=== PATIENT | female | born 1935 | race Hispanic/Latino ===

== ENCOUNTER 2016-03-23 14:24 | Inpatient (IN) | payer MEDICARE ==
[~2016-03-23] VITALS: Ht 154.9 cm; Wt 75.5 kg
[2016-03-23] VITALS (9 sets, daily range): BP systolic 115–140; BP diastolic 59–104; PULSE 71–139; RESP 16–29; O2SAT 36–95
[~2016-03-23 14:24] MED LIST: ACET-1453 PO; ASPI81TA2 PO; CAR180CD PO; COU25 PO; CYCL5TAB PO; LEV500 PO; LEVO750T9 PO; PRE20 PO; ProAirHFA INH; ZES20T PO; [UNRECOGNIZED DRUG - CODE] PO
--- NOTE | 2016-03-23 15:18 | ED.REPORT ---
HPI-General Illness Date of Service Mar 23, 2016 ED Provider: Jay Crespo MD 81 year old female with a hx of Afib on Warfarin and Cardizem presents to the ED due to generalized weakness and SOB this morning. Pt was seen at ENT yesterday due to multiple episodes of epistaxis where she had the areas cauterized. Pt is concerned that she lost too much blood. Today she reports associated wheezing. Pt denies CP and lightheadedness. Nursing Notes Stated Complaint: CHEST COLD Chief Complaint: Dysrhythmia/Cardiac Nursing Notes Reviewed: Yes Allergies: Coded Allergies: No Known Allergies (Verified Allergy, Unknown, 01/22/16) Scheduled Diltiazem-Expunged Drug, Do Not Renew! (Diltiazem CD-Expunged Drug, Do Not Renew !) 180 Mg Capsule 180 MG PO DAILY 24 HOUR DOSAGE FORM Lisinopril-Expunged Drug, Do Not Renew! (Lisinopril-Expunged Drug, Do Not Renew! ) 20 Mg Tablet 20 MG PO DAILY Prednisone (PredniSONE) 20 Mg Tablet 40 MG PO DAILY Warfarin Inactive Drug Do Not Use (Coumadin Inactive Drug Do Not Use) 2.5 Mg Tablet 5 MG PO DAILY Restart on 01/21 (tomorrow) Scheduled PRN Albuterol-Expunged Drug, Do Not Renew! (ProAir HFA-Expunged Drug, Do Not Renew! ) 200 Puff/8.5 Gm Hfa.aer.ad 2 PUFFS INH QID PRN PRN GUAIFENESIN/COD-Expunged Drug, Do Not Renew! (ROBITUSSIN AC-Expunged Drug, Do Not Renew!) 5 Ml Udc 5 ML PO Q6 PRN PRN General Time Seen by MD: 15:13 Chief Complaint Weakness Hx Obtained From: Patient, Other family... Arrived By: Wheelchair Sudden in Onset?: No Onset Occurred: 1 - 4 hours ago Symptom Duration: Since onset Severity: Current: No pain currently Associated with: Reports: Shortness of breath, Denies: Dizziness, Fever Pertinent Negative: Relieved by nothing Recent Healthcare: Recent doctor visit Past Medical History Past Medical History cataracts hypertension asthma arthritis borderline diabetes Past Surgical History Goiter surgery Smoking History Never Smoker Social History Alcohol Use: Denies alcohol use Drug Use: Denies drug use Other Social History: Good social support Ambulatory Status Independent Review of Systems Full Review of Systems Constitutional: Reports: Weakness - generalized, Denies: Fever Ears / Nose / Throat: Reports: Earache left, Nose bleeding (yesterday) Respiratory: Reports: Shortness of breath, Wheezing, Denies: Non-productive cough (productive cough +) Cardiovascular: Denies: Chest pain Neurologic: Denies: Dizziness, Lightheaded Complete sys rev & neg: except as marked. Physical Exam Vital Signs Vital Signs Date Time Temp Pulse Resp B/P Pulse Ox O2 Delivery O2 Flow Rate FiO2 03/23/16 17:02 137 29 115/74 92 Room Air 03/23/16 16:07 118 25 137/93 94 Room Air 03/23/16 15:58 139 20 36 Room Air 03/23/16 14:33 36.1 136 20 135/90 95 Room Air 03/23/16 14:29 36.1 136 20 135/90 95 Room Air Initial VS: Reviewed General/Constitutional: Well-developed, Well-nourished Head / Eyes: Atraumatic, Normocephalic, PERRL ENT: Conjunctiva normal, No scleral icterus Abdomen / GI: Soft, Non-tender, No guarding, No rebound, No distention Extremities: Vascular intact, Neuro intact Skin: Warm, Dry, No cyanosis Neurologic: Alert, Oriented, Nonfocal Psychiatric: Mood/affect normal, Behavior normal, Normal thought content ENT: Dried blood in nostrils without any active bleeding. Unable to see back of throat. Neck: Full range of motion Thyroidectomy scar Respiratory / Chest: Breath sounds = bilat Scattered wheezes Cardiovascular: No gallop, No murmurs, No rubs, Peripheral circulation NL Heart Rate / Rhythm: Positive: Irreg irregular rhythm, Tachycardia Interpretation & Diagnostics Lab Results Interpretation Result Diagram: 03/23/16 1500 03/23/16 1500 Test 03/23/16 15:00 03/23/16 15:52 03/23/16 17:20 White Blood Count 6.3th/mm3 (3.8-10.1) Red Blood Count 4.22mil/mm3 (3.90-5.20) Hemoglobin 12.6g/dL (12.0-15.6) Hematocrit 39.8% (35.0-46.0) Mean Corpuscular Volume 94.3fL (81-100) Mean Corpuscular Hemoglobin 29.9pg (27.0-35.0) Mean Corpuscular Hemoglobin Concent 31.7% (32.0-37.0) Red Cell Distribution Width 15.1% (12.3-15.4) Platelet Count 198bil/L (150-400) Neutrophils (%) (Auto) 69.0% (40-74) Lymphocytes (%) (Auto) 20.6% (14-46) Monocytes (%) (Auto) 8.6% (4-12) Eosinophils (%) (Auto) 1.3% (0-5) Basophils (%) (Auto) 0.3% (0-3) Prothrombin Time 40.2sec (8.1-12.5) Prothromb Time International Ratio 3.66ratio D-Dimer < 0.5mg/L (<0.50) Sodium Level 141mEq/L (134-144) Potassium Level 4.5mEq/L (3.5-5.2) Chloride Level 104mEq/L (97-108) Carbon Dioxide Level 24mmol/L (18-29) Blood Urea Nitrogen 28mg/dL (8-27) Creatinine 0.54mg/dL (0.57-1.00) Estimat Glomerular Filtration Rate 155mL/min (>59) Glucose Level 99mg/dL (60-99) Lactic Acid Level 1.2mmol/L (0.4-2.0) Calcium Level 9.1mg/dL (8.5-10.1) Magnesium Level 1.9mg/dL (1.6-2.6) Total Bilirubin 0.6mg/dL (0.0-1.2) Aspartate Amino Transf (AST/SGOT) 32U/L (0-50) Alanine Aminotransferase (ALT/SGPT) 39U/L (0-32) Alkaline Phosphatase 105U/L (25-165) Troponin T 0.055ug/L (0.0-0.011) Pro-B-Type Natriuretic Peptide 2182pg/mL (0-738) Total Protein 6.1g/dL (6.4-8.4) Albumin 3.5g/dL (3.4-5.0) Hold Quigley Top Tube Received (Received) Urine Color Yellow (YELLOW) Urine Appearance Hazy (CLEAR,HAZY) Urine pH 5.0 (5.0-8.0) Urine Specific [place] 1.025 (1.003-1.035) Urine Protein Negativemg/dL (NEG,TRACE) Urine Glucose (UA) Negativemg/dL (NEGATIVE) Urine Ketones Negativemg/dL (NEGATIVE) Urine Occult Blood Negative (NEGATIVE) Urine Nitrite Negative (NEGATIVE) Urine Bilirubin Negative (NEGATIVE) Urine Urobilinogen Normalmg/dL (NORMAL) Urine Leukocyte Esterase Negative (NEGATIVE) Urine RBC 0-2/hpf (0-2) Urine WBC 0-5/hpf (0-5) Urine Epithelial Cells Moderate/hpf (NONE-MOD) Urine Crystals None seen (NONE SEEN) Urine Bacteria Few/hpf (NONE-FEW) Urine Hyaline Casts None/lpf (NONE) Urine Granular Casts None seen (NONE SEEN) Urine Waxy Casts None seen (NONE SEEN) Urine Red Blood Cell Casts None seen (NONE SEEN) Urine White Blood Cell Casts None seen (NONE SEEN) Urine Mucus Present (None Seen) Urine Trichomonas None seen (NONE SEEN) Urine Yeast None (NONE SEEN) Urinalysis Comment None Urine Culture Reflexed Not indicated General Lab Results Interp 1: Labs reviewed ECG Interpretation ECG Interpretation: Afib with a rate of 134, LVH, No acute change except for rate. Time: 14:46 Interpreted by: ED physician X-Ray Chest Interpretation Chest Xray Interpretation: IMPRESSION: 1. Right lower lobe infiltrate suspicious for pneumonia. Dictated by: Jean Toure M.D. on 03/23/2016 at 15:45 View: Portable, 1 view Interpretation / Wet Read by: Interpret - Radiologist Re-Eval/Medical Decision Med Decision/Clinical Course 81-year-old female presenting with atrial fibrillation with rapid ventricular response. She is chronically in atrial fibrillation. The patient insists that she had been compliant with her Cardizem for rate control. She is anticoagulated and INR is supratherapeutic. Reported recent blood loss secondary to epistaxis however. Not have significant anemia. He do not believe she has an acute infection. In the emergency department she was given Cardizem boluses and drips with limited success and rate control. While showing elevated BNP, urine creatinine ratio also suggested that she was likely hypovolemic. We gave her a cautious fluid bolus. She will be admitted to the hospitalist service. Chest x-ray suggestive of a right lower lobe pneumonia, the patient does not have a fever does not have a cough and no leukocytosis. There have been findings of her right lower lobe infiltrate in the past and I am suspicious that this is chronic. Pulmonary embolism was considered but d-dimer is normal. She had no chest pain, elevated troponin may be secondary to rate, no ischemic changes on her EKG. Time of Eval: 16:31 Patient Status: Condition improved Re-Evaluation/Progress Note: Updated pt of labs, ECG and imaging results. Recommended admission. Pt understands and agrees with plan. All questions addressed. Time of Eval: 17:11 Patient Status: Condition unchanged Re-Evaluation/Progress Note: Rechecked. Consultation : Referral / Consult Name: Lars Amin MD Consulted With: Hospitalist Call Returned at: 17:12 Marking Machine Operator: Will see patient, Agrees with eval, Agrees with plan, Accepts admit Counseled Regarding: Diagnosis, Lab results, Need for admission Discharge & Departure Primary Impression: Atrial fibrillation with RVR Additional Impression: Elevated troponin Disposition: ADMITTED TO HOSPITAL Discharge Condition All VS Reviewed: Yes Referrals: Mario Tobar PA-C (PCP) Scribe Attestation Portions of this note were transcribed by Lidia Loving. I, (Dr. Crespo) personally performed the history, physical exam and medical decision- making; I reviewed and confirmed the accuracy of the information in the transcribed note. Signed by: Lidia Loving. 03/23/2016, [id number] copies to: Mario Tobar PA-C, Donald L MD Mar 23, 2016 15:18 Lidia Loving Mar 23, 2016 15:35
[2016-03-23 15:24] LABS: BASOPHILS % (AUTO) 0.3 % (0-3); EOSINOPHILS % (AUTO) 1.3 % (0-5); MONOCYTES % (AUTO) 8.6 % (4-12); Mean Corpuscular Hemoglobin 29.9 pg (27.0-35.0); Mean Corpuscular Volume 94.3 fL (81-100); Platelet Count 198 bil/L (150-400)
[2016-03-23] MEDS ORDERED: Albuterol-Ipratropium 3 mL Inhalation Solution NEB ONE (15:30)
[2016-03-23] MEDS ORDERED: Diltiazem 5 mg/mL 5 mL Inj IVPUSH ONE ×2 (15:30→16:35)
[2016-03-23 15:45] LABS: INR 3.66 ratio
--- NOTE | 2016-03-23 15:49 | DRSVH ---
PROCEDURE: X-RAY CHEST ONE VIEW, PORTABLE ([id number]) INDICATIONS: COUGH, Chest pain TECHNIQUE: One view of the chest was acquired. COMPARISON: [facility], CR, XR CHEST 2VW, 05/29/2015, 16:42. [facility], C R, XR CHEST 2VW, 01/01/2016, 10:30. [facility], CR, XR CHEST 1VW (PORTABLE), 01/22/2016, 13:27. FINDINGS: Surgical changes and devices: None. Lungs and pleura: There is right lower lobe infiltrate. No pleural effusions or pneumothorax. Lungs are clear. Mediastinum: Mediastinal contours appear normal. Heart size is at the upper limits of normal. There is aortic calcification consistent with atherosclerosis. Bones and chest wall: Calcified nodules in the right upper abdomen are again noted. No suspicious bob ny lesions. Overlying soft tissues appear unremarkable. IMPRESSION: 1. Right lower lobe infiltrate suspicious for pneumonia. Dictated by: Jean Toure M.D. on 03/23/2016 at 15:45 Approved by: Jean Toure M.D. on 03/23/2016 at 15:47
[2016-03-23 16:06] LABS: Magnesium 1.9 mg/dL (1.6-2.6)
[2016-03-23 16:10] LABS: TROPONIN T 0.055 ug/L (0.0-0.011)
[2016-03-23] MEDS: Diltiazem Inj 125 MG in Dextrose 5% 100 ML IV SCH (16:10)
[2016-03-23] MEDS ORDERED: levoFLOXacin Inj 750 MG in IV Premix 1 EACH IV ONE (16:25)
[2016-03-23] MEDS ORDERED: 0.9% Sodium Chloride 500 ML IV ONE (17:10)
[2016-03-23 17:49] LABS: APPEARANCE,URINE HAZY (CLEAR,HAZY); COLOR,URINE YELLOW (YELLOW); OCCULT BLOOD,URINE NEGATIVE (NEGATIVE); UROBILINOGEN,URINE NORMAL (NORMAL)
--- NOTE | 2016-03-23 19:23 | NUR ---
Admit note Patient a/o x 4, denies chest pain or nausea, but sob at rest and with activity. O 2 RA sat 92-94%, RR 20-24 min. See vitals, tele A fib RVR 130-140, Dilt gtt @ 10 mg/hr. Patient oriented to call light, tv, phone, bathroom and poc. Patient sitting on edge of bed for dinner shelbie well. Patient somewhat anxious at times and developed nose bleed this evening with min amt of bleeding. Patient declined Influenza vaccine.
[2016-03-23] MEDS: 0.9% Sodium Chloride 1,000 ML IV SCH (23:27)
[2016-03-23] MEDS ORDERED: Alum-Mag Hydrox-Simeth 30 mL Suspension PO PRN (23:30)
[2016-03-23] MEDS ORDERED: Polyethylene Glycol (PEG) 17 Gm Powder PO PRN (23:30)
[2016-03-23] MEDS ORDERED: Ondansetron 2 mg/mL 2 mL Inj IVPUSH PRN (23:30)
--- NOTE | 2016-03-23 23:48 | PCM.HPMED ---
Subjective Date of Service Mar 23, 2016 Primary Provider: Admitting Physician: Lars Amin MD Primary Care Physician: Prashanth Nevarez MD Attending Physician: Lars Amin MD Chief Complaint: epistaxis and rapid atrial fibrillation History of Present Illness: Patient is a 81 year old female with a pmh as outlined below that is presenting with rapid atrial fibrillation. Patient is known patient with atrial fibrillation that is on coumadin. Patient yesterday suffered from a bout of epistaxis that was severe enough that it warranted emt visit. portable feed mill operator were able to cauterize the wound after several hours. Afterwards when discussing the event with her physician he asked that the patient go to the ER to assess for possible blood loss anemia. While getting worked up in the ER the patient was seen to be in rapid atrial fibrillation. Patient when told of this had no symptoms stemming from it. It was decided that the patient should be rate controlled before being discharged to back home. Patient is currently hemodynamically stable and will be admitted. Review of Systems: Constitutional: Reports: Weakness - generalized, Denies: Fever Ears / Nose / Throat: Reports: Earache left, Nose bleeding (yesterday) Respiratory: Reports: Shortness of breath, Wheezing, Denies: Non-productive cough (productive cough +) Cardiovascular: Denies: Chest pain Neurologic: Denies: Dizziness, Lightheaded Complete sys rev & neg: except as marked. Allergies Coded Allergies: No Known Allergies (Verified Allergy, Unknown, 01/22/16) Home Medications Diltiazem 180 Mg Capsule 180 MG PO DAILY Lisinopril 20 Mg Tablet Prednisone (PredniSONE) 20 Mg Tablet 40 MG PO DAILY Warfarin 2.5 Mg Tablet 5 MG PO DAILY Restart on 01/21 (tomorrow) PMH cataracts hypertension asthma arthritis borderline diabetes Surgical History Goiter surgery Family History non-contributory Social History Hx Alcohol Use: Yes (1 drink 2 x week) Hx Substance Use: No Hx Tobacco Use: No Smoking Status: Never Smoker Exam Vital Signs Vital Sign - Last Date Time Temp Pulse Resp B/P Pulse Ox O2 Delivery O2 Flow Rate FiO2 03/23/16 23:10 36.5 71 25 133/59 94 Room Air Exam General/Constitutional: Well-developed, Well-nourished Head / Eyes: Atraumatic, Normocephalic, PERRL ENT: Conjunctiva normal, No scleral icterus, Dried blood in nostrils without any active bleeding. Unable to see back of throat. Neck: Full range of motion Thyroidectomy scar Respiratory / Chest: Breath sounds = bilat, scattered wheezes Cardiovascular: No gallop, No murmurs, No rubs, Peripheral circulation NL Heart Rate / Rhythm: Positive: Irreg irregular rhythm, Tachycardia Abdomen / GI: Soft, Non-tender, No guarding, No rebound, No distention Extremities: Vascular intact, Neuro intact Skin: Warm, Dry, No cyanosis Neurologic: Alert, Oriented, Nonfocal Psychiatric: Mood/affect normal, Behavior normal, Normal thought content Lab and Diagnostics Result Diagram: 03/23/16 1500 03/23/16 1500 X-Rays, CTs and MRIs PROCEDURE: X-RAY CHEST ONE VIEW, PORTABLE ([id number]) INDICATIONS: COUGH, Chest pain TECHNIQUE: One view of the chest was acquired. COMPARISON: [facility], CR, XR CHEST 2VW, 05/29/2015, 16:42. [facility], CR, XR CHEST 2VW, 01/01/2016, 10:30. [facility], CR, XR CHEST 1VW (PORTABLE), 01/22/2016, 13:27. FINDINGS: Surgical changes and devices: None. Lungs and pleura: There is right lower lobe infiltrate. No pleural effusions or pneumothorax. Lungs are clear. Mediastinum: Mediastinal contours appear normal. Heart size is at the upper limits of normal. There is aortic calcification consistent with atherosclerosis. Bones and chest wall: Calcified nodules in the right upper abdomen are again noted. No suspicious bony lesions. Overlying soft tissues appear unremarkable. IMPRESSION: 1. Right lower lobe infiltrate suspicious for pneumonia. 12-lead ECG atrial fibrillation @134 Assessment & Plan Patient is a 81 year old female with a pmh as outline above, patietn is presenting with evaluation for anemia but was found to be in rapid atrial fibrillation. Patient is currently hemodynamically stable Atrial fibrillation,rapid - Patient has an established history of continually being in atrial fibrillation - Pt has been on coumadin and cardizem for this pathology - Pt seen to be super therapeutic, will hold coumadin - will place on telemtry - will place on cardizem drip and titrate up until desirable heart rate is reached - will continue to trend troponins given minor elevation (likely due to heart rate) Pneumonia - Patient has radiological and physical findings that suggest pneumonia - will start patient on duonebs bid - will start ceftriaxone and azithromycin for treatment Hypertension - Pt has an established history of hypertension - will hold lisinopril dose given current bp dvt ppx via coumadin gi ppx not warranted Lars Amin MD Mar 23, 2016 23:24
[2016-03-23] MEDS ORDERED: Albuterol-Ipratropium 3 mL Inhalation Solution NEB PRN (23:50)
[2016-03-24] VITALS (11 sets, daily range): BP systolic 113–170; BP diastolic 58–96; PULSE 47–135; RESP 16–32; O2SAT 92–95
[2016-03-24 02:50] LABS: BASOPHILS % (AUTO) 0.5 % (0-3); MONOCYTES % (AUTO) 13.2 % (4-12); Mean Corpuscular Hemoglobin 30.2 pg (27.0-35.0); Mean Corpuscular Volume 94.6 fL (81-100); NEUTROPHILS % (AUTO) 59.8 % (40-74); Platelet Count 213 bil/L (150-400)
[2016-03-24] MEDS ORDERED: Azithromycin Inj 500 MG in Dextrose 5% w/Vial Mate 250 ML IV SCH (08:30)
[2016-03-24] MEDS ORDERED: cefTRIAXone Inj 1,000 MG in IV Premix 1 EACH IV SCH (08:30)
[2016-03-24] MEDS: 0.9% Sodium Chloride 1,000 ML IV SCH (08:57)
[2016-03-24] MEDS: Ipratropium 0.02% 0.5 mg/2.5 mL Inhalation Solution NEB PRN ×2 (09:13→15:33)
[2016-03-24] MEDS: Diltiazem Inj 125 MG in Dextrose 5% 100 ML IV SCH (10:12)
[2016-03-24] MEDS ORDERED: LISI40TA PO (10:56)
--- NOTE | 2016-03-24 14:06 | NUR ---
Social Work: Initial Assessment Data & Assessment: EMR Reviewed. See Initial Assessment. Financial Internship met with patient at bedside to complete initial assessment, discuss discharge planning and SW role explained.Patient is a 81 y/o female that admitted due to Afib with RVR elevated Trop. Patient is alert and oriented x 3. Patient's NOK is her son Christian [id number]-[phone]. Patient does not have a DPOA and declined information when offered. Patient confirmed that her PCP is Dr. Prashanth Nevarez. Patient's insurance is [employer] Complete HMO. Patient's re-admit score is low at 1. Patient does not have VA or LTC benefits. Patient reports that she lives independently in a two story home but everything she needs is on the first level. Patient is independent with ADL's. Patient reports that there is three steps to enter her home. Patient does not have any DME. Patient has never been to a SNF or had HH. Patient does not have any discharge needs at the current time, but SW will continue to follow incase a need arise. Plan: Patient will discharge home with no needs in POV. SW will continue to follow. Sunni Martins LMSW, ISIS Addendum: 03/24/16 at 1444 by SUNNI MARTINS Amended: Links added.
[2016-03-24] MEDS ORDERED: PRE20 PO (14:11)
[2016-03-24] MEDS ORDERED: CYCL5TAB PO (14:11)
[2016-03-24] MEDS ORDERED: WARF5TAB7 PO ×2 (14:11)
[2016-03-24] MEDS ORDERED: [UNRECOGNIZED DRUG - OTHER] PO (14:17)
[2016-03-24] MEDS ORDERED: SIMV40TA5 PO (14:17)
[2016-03-24] MEDS ORDERED: DILT180C53 PO (14:17)
[2016-03-24] MEDS ORDERED: DIGO125T73 PO (14:17)
[2016-03-24] MEDS ORDERED: OXYB5TAB10 PO (14:17)
[2016-03-24] MEDS ORDERED: FLUT12AE8 IH (14:17)
[2016-03-24] MEDS ORDERED: MeTOProlol 1 mg/mL 5 mL Inj IVPUSH ONE (14:55)
--- NOTE | 2016-03-24 17:44 | DRSVH ---
[facility] [address] [place] [address] Echocardiogram Report Name: MARYCARMEN HILL Study Date: 03/24/2016 Height: 61 in Hospital Exam Location: [facility] Weight: 175 lb Gender: Female BSA: 1.8 m2 : 1935 Age: 81 yrs BP: 170/96 mmHg Reason For Study: SOB, ATRIAL FIBRILLATION Ordering Physician: HOSPITALIST [facility] Performed By: Monty Boateng Referring Physician: GIN MENA Interpretation Summary There is mild concentric left ventricular hypertrophy. Left ventricular ejection fraction is estimated to be .35. There is moderate global hypokinesis of the left ventricle. There iis severe hypokinesis of the basal infero-septal and lateral apical segments There is moderate tricuspid regurgitation. The right ventricular systolic pressure is estimated at 47 mmHg assuming a right atrial pressure of 15 mm Hg. Compared to prior echo report on 2011, changes are noted. Procedure: A two-dimensional transthoracic echocardiogram with color flow and Doppler was performed. The study quality was technically adequate. Comparison is made with the echocardiogram of 04/24/11. Left Ventricle: The left ventricle is normal in size. There is mild concentric left ventricular hypertrophy. Left ventricular ejection fraction is estimated to be .35. There is moderate global hypokinesis of the left ventricle. There iis severe hypokinesis of the basal infero-septal and lateral apical segments. Assessment of diastolic parameters suggests a pseudonormalization pattern, consistent with elevated filling pressures. Right Ventricle: The right ventricle is mildly dilated. Right ventricular systolic function is mild to moderately reduced. Atria: There is mild biatrial enlargement. The interatrial septum is intact with no evidence for an atrial septal defect. Aortic Valve: The aortic valve is moderately calcified. The aortic valve is trileaflet. No aortic regurgitation is present. Tricuspid Valve: The tricuspid valve is not well visualized, but is grossly normal. There is moderate tricuspid regurgitation. The right ventricular systolic pressure is estimated at 47 mmHg assuming a right atrial pressure of 15 mm Hg. Pulmonic Valve: The pulmonic valve is not well visualized. There is a trace or physiologic amount of pulmonic regurgitation. Great Vessels: The aortic root is normal size. The ascending aorta is mildly enlarged. The pulmonary artery is normal size. The IVC is dilated (diameter is greater than 2.1 cm) and it collapses less than 50% with a sniff. This suggests a high right atrial pressure of 15 mm Hg. Pericardium/ Pleura There is no pericardial effusion. MMode/2D Measurements & Calculations LVIDd: 4.4 cm RA long axis LVOT diam LVIDs: 3.5 cm LA A2 area: 21.1 cm FS: 20.4 % LA A4 area: 20.1 cm RA area AoV Opening EPSS: 0.55 cm LA length (vol): 5.3 cm IVSd: 1.1 cm LA vol: 67.9 ml : 20.3 cm Ao root diam LVPWd: 1.3 cm LA vol index RA vol : 62.5 ml asc Aorta RA Diam: 3.8 cm IVC diam: 2.7 cm : 35.0 mm2 LV pope. diameter/BSA LV sys. diameter/BSA RVD1 (basal) TAPSE: 1.4 cm (cm/m^2): 2.5 (cm/m^2): 2.0 Doppler Measurements & Calculations Ao V2 max: 157.1 cm/secMV E max ke MV E/A: 1.1 TR max ke Ao max P.9 mmHg : 118.5 cm/sec Med Peak E' Ke : 281.1 cm/sec Ao mean P.3 mmHg MV A max ke TR max PG LVOT Max Ke : 103.9 cm/sec E/E' med: 36.3 : 31.6 mmHg : 82.5 cm/sec Lat Peak E' Ke PA V2 max ROCKY(I,D): 1.5 cm : 64.6 cm/sec sev ratio: 0.58 E/E' lat: 25.6 PA mean PG E/e' average : 0.81 mmHg MV dec time: 0.12 sec Ao V2 mean LV V1 max PG PA V2 mean : 121.6 cm/sec : 42.2 cm/sec Ao V2 VTI: 32.4 cmLV V1 VTI PA pr(Accel) ROCKY(V,D): 1.4 cm2 : 18.8 cm : 33.8 mmHg ROCKY indexed to BSA (cm^2/m^2): 0.84 Electronically signed by: Espinoza Albright on Reading Physician:03/24/2016 05:31 PM
--- NOTE | 2016-03-24 19:46 | NUR ---
Dilt gtt/Tele/Activity Patient a/o x 4, denies pain or nausea, but c/o sob this a.m. Lungs with wheezes and decreased throughout, RTC paged and neb tx given with good effect. Patient sat up in chair for approx 4 hrs this shift. Patient on dilt gtt tele A fib 130's, notified and no new orders this a.m. Patient re eval this afternoon and Dilt gtt stopped and IV Metoprolol x 1 given with good effect, tele decreased to A fib 60's. Approx 2 hrs after Metoprolol dose tele increased to 100-120's A Md carmen notified and Cardiology paged and new orders to be placed. Will cont poc.
[2016-03-24] MEDS: Digoxin 0.25 mg/mL 2 mL Inj IV SCH (20:22)
--- NOTE | 2016-03-24 21:39 | NUR ---
HR/ACTIVITY Pt up in chair, no c/o pain, SOB, chest discomfort, N/V/D. Pt had IV Dilt gtt DC'd, new orders for PO Digoxin 0.25mg Q6 and PO Metoprolol 25mg Q6. HR 128 BP 113/82. No other issues noted at this time. Pt independent in room.
--- NOTE | 2016-03-24 22:11 | PCM.PNMED ---
Subjective Date of Service Mar 24, 2016 Subjective Patient is a 81 year old female with a past medical history of cataracts, hypertension, asthma, arthritis, borderline diabetes . Admitted for treatment of nose bleed s/p cauterization, atrial fibrillation anticoagulated on Coumadin with RVR hemodynamically stable. Hospital Day 2. Overnight: nursing reported on tele A-fib with RVR HR 100-120 Today: Patent today stated that her heart is still beating fast and she cannot get up out of bed with out it increasing more. Patient noted that she has had a cough for several days, noted that she isn't coughing up anything, does not report sick contacts. Patient denies fever, chills, constipation, diarrhea, dysuria. ROS negative except as mentioned above. Exam Vital Signs Vital Sign - Last Date Time Temp Pulse Resp B/P Pulse Ox O2 Delivery O2 Flow Rate FiO2 03/24/16 04:26 88 03/24/16 02:36 36.6 26 130/81 92 Room Air Intake and Output 03/23/16 03/23/16 03/24/16 Cumulative From/Thru 15:00 23:00 07:00 03/23/16 14:29 - 03/24/16 04:40 Intake Total 50 ml 50 ml Balance 50 ml 50 ml Intake Oral 50 ml 50 ml # Voids 2 2 # Bowel Movements 1 1 Exam General/Constitutional: Well-developed, Well-nourished Head / Eyes: Atraumatic, Normocephalic, PERRL ENT: Conjunctiva normal, No scleral icterus, Dried blood in nostrils without any active bleeding. Neck: Full range of motion, Thyroidectomy scar Respiratory / Chest: Cough, breath sounds equal bilat, scattered expiratory wheezes, Cardiovascular: No gallop, No murmurs, No rubs, Peripheral circulation NL Heart Rate / Rhythm: Positive: Irreg irregular rhythm, Tachycardia Abdomen / GI: Soft, Non-tender, No guarding, No rebound, No distention Extremities: Vascular intact, Neuro intact Skin: Warm, Dry, No cyanosis Neurologic: Alert, Oriented, Nonfocal Psychiatric: Mood/affect normal, Behavior normal, Normal thought content IVs and Medications Medications Reviewed: Medications were reviewed in detail Medications ASA 81 mg Ceftriaxone 50ml/100mls/hr Ipratropium Zofran Ondansetron Senna Polyethylene glycol NS @ 100mls/hr Lab and Diagnostics Result Diagram: 03/24/16 0240 03/24/16 0240 X-Rays, CTs and MRIs PROCEDURE: X-RAY CHEST ONE VIEW, PORTABLE ([id number]) INDICATIONS: COUGH, Chest pain TECHNIQUE: One view of the chest was acquired. COMPARISON: [facility], CR, XR CHEST 2VW, 05/29/2015, 16:42. [facility], CR, XR CHEST 2VW, 01/01/2016, 10:30. [facility], CR, XR CHEST 1VW (PORTABLE), 01/22/2016, 13:27. FINDINGS: Surgical changes and devices: None. Lungs and pleura: There is right lower lobe infiltrate. No pleural effusions or pneumothorax. Lungs are clear. Mediastinum: Mediastinal contours appear normal. Heart size is at the upper limits of normal. There is aortic calcification consistent with atherosclerosis. Bones and chest wall: Calcified nodules in the right upper abdomen are again noted. No suspicious bony lesions. Overlying soft tissues appear unremarkable. IMPRESSION: 1. Right lower lobe infiltrate suspicious for pneumonia. 12-lead ECG 2:1 atrial flutter HR 134 Cardiac Echo Impressions Echocardiogram Interpretation Summary: There is mild concentric left ventricular hypertrophy. Left ventricular ejection fraction is estimated to be .35. There is moderate global hypokinesis of the left ventricle. There iis severe hypokinesis of the basal infero-septal and lateral apical segments There is moderate tricuspid regurgitation. The right ventricular systolic pressure is estimated at 47 mmHg assuming a right atrial pressure of 15 mm Hg. Compared to prior echo report on 2011, changes are noted. Electronically signed by: Espinoza Albright on Reading Physician:03/24/2016 05:31 PM Assessment & Plan Patient is a 81 year old female with a past medical history of cataracts, hypertension, asthma, arthritis, borderline diabetes . Admitted for treatment of nose bleed s/p cauterization, atrial fibrillation anticoagulated on Coumadin with RVR hemodynamically stable. Hospital Day 2. 1. Atrial fibrillation with RVR and cycling between flutter and fibrillation, acute, present on admission - Patient has an established history of continually being in atrial fibrillation - On tele patient HR 100-130 cycling between flutter and fibrillation - Pt has been on coumadin and cardizem for this pathology - Pt seen to be super therapeutic, will hold coumadin until INR become therapeutic - Continue telemtry - Continue diltiazem drip and titrated to 15 mg/kg/hr with HR control - Discontinued diltiazem drip, started trial of 5 mg Metoprolol succinate IV push and monitored response patient HR control still in atrial flutter, per cardiology recommendations convert metoprolol to 25 mg metoprolol tartrate PO BID - Start Digoxin 0.25 mg PO Q6, continue to monitor - Digoxin level ordered - Cardiology consulted, we appreciate their time and recommendations -Last ECHO 2011, repeat ECHO ordered. EF 35.% - will continue to trend troponins given minor elevation (likely due to heart rate), trending down 2. Pneumonia, likely CAP, acute, present on admission, ongoing - Patient has radiological and physical findings that suggest pneumonia - Stop patient on duonebs bid - Start Ipatropium neb Q6 - Continue ceftriaxone and azithromycin for treatment - Procalcitonin and lactic acid ordered, negative -Guaifenesin PO Q12 ordered to help clear mucus 3. Hypertension - Pt has an established history of hypertension - will hold lisinopril dose given current bp dvt ppx via coumadin gi ppx not warranted Disposition: patient will likely discharege to home in 24-48 hours pending control of HR and improvement of respiratory status Attending Statement The patient was seen and examined together with Dr. Mena on 03/24/2016 and I agree with the history, exam and plan as outlined in the note above. . GIN MENA DO Mar 24, 2016 06:51 Anil López MD Mar 26, 2016 14:59
[2016-03-25] VITALS (9 sets, daily range): BP systolic 121–135; BP diastolic 54–92; PULSE 62–130; RESP 18–33; O2SAT 95–96
[2016-03-25] MEDS: Digoxin 0.25 mg/mL 2 mL Inj IV SCH ×2 (01:30→07:30)
[2016-03-25 03:24] LABS: Mean Corpuscular Volume 94.6 fL (81-100)
[2016-03-25 03:38] LABS: INR 2.7 ratio
[2016-03-25 04:11] LABS: TROPONIN T 0.032 ug/L (0.0-0.011)
--- NOTE | 2016-03-25 04:19 | NUR ---
EPISTAXIS Pt's nose began to bleed around 2300, pt held pressure for at least 20 minutes before calling for the nurse. RN applied pressure as well for 15 minutes. Bleeding became worse and pt stated that it was draining in her throat. RN notified MD, new order for Afrin nasal spray was administered in attempt to vasoconstrict and control the bleeding. Bleeding continued and large amounts of blood was coughed up from the back of the throat. MD was notified and nasal packing was sent up from central supply. Nasal packing did not control the bleeding and again MD and charge nurse were notified. A Rhino rocket was administered by an ED MD along with [address] Barkley stayed after the insertion to monitor the pt for 10-15 minutes. Bleeding was controlled and pt was able to rest.
[2016-03-25] MEDS ORDERED: cefTRIAXone Inj 1,000 MG in Dextrose 5% Minibag Plus 50 ML IV SCH (08:30)
[2016-03-25] MEDS ORDERED: MeTOProlol 1 mg/mL 5 mL Inj IV ONE (09:05)
[2016-03-25] MEDS: guaiFENesin 600 mg ER12 Tablet PO SCH ×2 (09:29→20:20)
[2016-03-25] MEDS: Furosemide 10 mg/mL 4 mL Inj IVPUSH SCH (10:03)
--- NOTE | 2016-03-25 10:24 | CONS ---
[address] [address] CONSULTATION REPORT PATIENT: MARYCARMEN HILL : 1935 MR#: [id number] ADMIT: 03/23/2016 JOB ID: [id number] DATE OF SERVICE: 03/25/2016 CARDIOLOGY CONSULTATION: REASON FOR CARDIOLOGY CONSULT: For the evaluation of atrial fibrillation and LV dysfunction. CHIEF COMPLAINT: Bleeding from nose and some shortness of breath. PRESENT HISTORY: This 81-year-old, female, who has likely paroxysmal AFib, on Coumadin for many years, essential hypertension, lower extremity swelling, history of borderline diabetes mellitus, arthritis, and history of epistaxis got admitted through the ED because of above-mentioned chief complaint. The day before yesterday the patient suffered a bout of epistaxis, which was severe, enough to require ENT visit. They were able to cauterize the wound after several hours. The patient was seen in the ED for possible blood loss anemia and found to have AFib with fast ventricular rate. Hence, she got admitted to the hospital. In the hospital she underwent echocardiogram yesterday which revealed LV ejection fraction about 35% and global hypokinesis but there were focal wall motion abnormalities as well. In my view, base to mid posterior lateral wall appears to be severely hypokinetic, as well as distal inferior septum. There were some restrictions of aortic valve but no critical aortic stenosis. Moderate tricuspid regurgitation. Pulmonary artery systolic pressure about 47 mmHg. Right ventricle function mild to moderately reduced. Pulmonary artery systolic pressure was about 47 mmHg. At present, patient lying on bed. In the hospital her INR was supratherapeutic initially. On March 23 it was 3.66 and today, it is 2.7. According to the nurse last night, she had profuse bleeding from left nostril and ED had to pack the right nostril again. She is not having any active chest pain but she has difficulty in breathing. At present, she is not actively wheezing. She has cough. She has postnasal drip, and she is spitting out the blood from the nose. At present, she is not having acute profuse bleeding. Denies any previous history of myocardial infarction, rheumatic heart disease or congenital heart disease, stomach ulcer, or connective tissue disorder. Denies any history of claudication. She has a history of swelling involving both lower extremities for a long time. Denies any known history of DVT or pulmonary embolism. Denies any history of stroke. PAST MEDICAL HISTORY: History of paroxysmal AFib, on Coumadin for a long time, history of essential hypertension, borderline diabetes, history of asthma, arthritis. PAST SURGICAL HISTORY: Goiter surgery. ALLERGIES: No known allergies. HOME MEDICATION: According to hospitalist, she was on: 1. Diltiazem 180 mg daily. 2. Lisinopril 20 mg daily. 3. Prednisone 40 mg daily. 4. Warfarin. SOCIAL HISTORY: Denies any current tobacco abuse or alcohol abuse. FAMILY HISTORY: Noncontributory. REVIEW OF SYSTEMS: At least 10 points of review of systems were obtained. They are negative except as stated above. PHYSICAL EXAMINATION: Blood pressure 123/85, heart rate in 130s, respiratory rate 18, oxygen saturation on room air 95%. HEENT: The patient has packing in the right nose. Neck: No apparent JVD. However, the patient has hepatojugular reflux. Chest: Decreased air entry with basilar crepitations. CVS: S1 variable, P2 appears prominent. No S3. No S4. I do not appreciate any significant murmur. Abdomen: Obese. I do not appreciate any pulsatile mass or obvious hepatosplenomegaly. Extremities: 2+ bilateral pedal edema. Vascular: No evidence of critical limb ischemia. [employer]: Alert, oriented to time, place, and person. No obvious motor or sensory deficit. LABORATORIES: INR today 2.7. Hemoglobin 11.9, yesterday 12.3. WBC 7.5, platelets 241. Sodium 138, potassium 4.3, BUN 20, creatinine 0.81, calcium 8.9. ProBNP 2182. Serial troponin 0.055, 0.058, 0.039 and 0.032. AST 26, ALT 36. Procalcitonin less than 0.05. Digoxin level this morning 1.1. DIAGNOSTIC STUDIES: X-ray of chest on admission, right lower lobe infiltrate suspicious for pneumonia. A 12-lead EKG on admission, which was done on March 23, 2016 at 2:46 p.m., revealed likely underlying atrial flutter, which appears to have some atypical components with underlying left anterior fascicular block, LVH, IVCD and some strain pattern. QTc 469 msec. I reviewed telemetry. When her heart rate was slowing down, we can see atrial activity. It is looks like atypical atrial flutter. ASSESSMENT AND PLAN: 1. Known history of paroxysmal atrial fibrillation with current arrhythmia, likely atrial flutter with fast ventricular rate. 2. Acute or subacute congestive heart failure, which is likely is predominantly systolic with some diastolic component with underlying profound left ventricular dysfunction with left ventricular ejection fraction in the range of 35% with about moderate pulmonary hypertension with known history of essential hypertension, recurrent epistaxis, supratherapeutic INR. The patient is being treated for possible pneumonia as well. 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 However, suspect underlying coronary artery disease as well. She may have some component of ischemic cardiomyopathy due to some focal wall motion abnormalities on echocardiograms and some risk factors. At this point of time, will optimize rate control. I will treat her for congestive heart failure as well. Will give her Lasix 40 mg IV and start with MERON inhibitor, lisinopril, as well as spironolactone. Will change metoprolol tartrate to metoprolol succinate 50 mg three times a day. I would like to cardiovert her once she gets stable. However, at present, we are holding her Coumadin because of active bleeding. Hence, we will have to wait for cardioversion until we are pretty sure that she can tolerate anticoagulation. It is reasonable to consider amiodarone in her case for short term which will help rate control and down the road, if she undergoes cardioversion, it will maintain the sinus rhythm. At some point of time, patient will need ischemic evaluation as well. If her LV function remains low despite having adequate rate control or rhythm control, then consider left heart catheterization. Management of underlying active epistaxis I will leave up to our hospitalist team and ENT. At present, I would like to hold aspirin and Coumadin. Watch electrolytes and hemoglobin carefully. Will check her TSH and lipid profile. For the time being I will put her on Lipitor as well. Discussed the plan with the patient. She agrees and concurs. Thanks for the cardiology consult. TOTAL TIME SPENT TODAY: About 80 minutes.
[2016-03-25 10:25] LABS: Mean Corpuscular Volume 94.2 fL (81-100)
[2016-03-25 10:40] LABS: INR 2.35 ratio
[2016-03-25] MEDS: MeTOProlol XL 50 mg ER24 Tablet PO SCH ×3 (11:24→20:19)
[2016-03-25 12:43] LABS: Mean Corpuscular Hemoglobin 30.3 pg (27.0-35.0); Mean Corpuscular Volume 93.4 fL (81-100)
--- NOTE | 2016-03-25 12:56 | OP ---
[address] [address] OPERATIVE REPORT PATIENT: MARYCARMEN HILL : 1935 MR#: [id number] ADMIT: 03/23/2016 JOB ID: [id number] DATE OF SURGERY: 03/25/2016 SURGEON: Riki Khan MD PREOPERATIVE DIAGNOSIS(ES): Right-sided nasal epistaxis. POSTOPERATIVE DIAGNOSIS(ES): Right-sided nasal epistaxis. INDICATIONS FOR PROCEDURE: Right-sided nasal epistaxis. OPERATION PERFORMED: 24980, endoscopic control of epistaxis. INDICATIONS FOR PROCEDURE: Epistaxis in a lady on Coumadin with atrial fibrillation and atrial flutter who has a Rhinorocket in place and it continues to bleed. OPERATIVE FINDINGS: Small mid septal 3 mm perforation surrounded by prominent vessels bleeding in this region just above and anterior to the septal perforation. DESCRIPTION OF PROCEDURE: With the patient supine on the hospital bed, the patient had Afrin followed by xylocaine on cotton to decongest the nose. Suction was utilized to remove all blood clots. The only bleeding site noted after removal of the Rhinorocket was the aforementioned septal bleeding region. Then, with 30 degree endoscopy and no other obvious bleeding site right or left, this area was cauterized with silver nitrate. Thereafter, Polysporin-impregnated half-inch Vaseline gauze, about 2/3 of a pack, was placed starting inferiorly up to include the right nasal airway, including the region of the cautery. Tape held the gauze in place. Procedure terminated. Patient was observed for 20 minutes. No further bleeding was observed. We will see this patient in about four days, approximately Monday in our office for followup. Recommendations would be amoxicillin 500 mg twice a day for five days to help prevent sinus infection since this will include the sinus ostia, bring the Coumadin within therapeutic levels. It is apparently high at this point, but it may be continued.
[2016-03-25] MEDS ORDERED: IV Premix 1 EACH IV ONE (14:34)
[2016-03-25] MEDS ORDERED: Amiodarone 150 mg/100 mL D5W Premix IV ONE (14:34)
[2016-03-25] MEDS ORDERED: Amiodarone 360 mg/200 mL D5W 360 MG in IV Premix 1 EACH IV SCH ×2 (14:35→21:35)
[2016-03-25] MEDS ORDERED: Amiodarone 150 mg/100 mL D5W IV ONE (14:35)
[2016-03-25] MEDS ORDERED: 0.9% Sodium Chloride 250 ML ONE (15:00)
--- NOTE | 2016-03-25 16:51 | NUR ---
Cardiac/Resp/Held Medications Pt started on Amiodarone.Drip rate currently at 33.4mls/hr for 6 hours started approximately at 1315. Pt tolerating drip with heart rate 70-90 BPM. Resp Pt started on Lasix, Lung sounds decreased in bases, pt's cough still present but much improved throughout the shift. Pt no longer demonstrating dyspnea at rest. Pt ambulating from bed to chair and bedside commode with SBA for line management. Pt am medications held this morning included aspirin, digoxin and IV antibiotics per MD order for epistaxis and CHF.
--- NOTE | 2016-03-25 19:29 | PCM.PNMED ---
Subjective Date of Service Mar 25, 2016 Subjective Patient is a 81 year old female with a past medical history of cataracts, hypertension, asthma, arthritis, borderline diabetes . Admitted for treatment of nose bleed s/p cauterization, atrial fibrillation anticoagulated on Coumadin with RVR hemodynamically stable. Hospital Day 3. Overnight: nursing reported re-occurrence of nose bleed, ED called and placed RhinoRocket Today: Patient stated that her nose started to bleed last night unexpectedly. Additionally patient noted that the swelling in her legs has become worse today. Patient denies fever, chills, diarrhea, dysuria,syncope. Patient's daughter in law stated that her mother in law has not been taking adequate care of her nose after her first cauterization. ROS negative except as mentioned above. Exam Vital Signs Vital Sign - Last Date Time Temp Pulse Resp B/P Pulse Ox O2 Delivery O2 Flow Rate FiO2 03/25/16 04:55 90 03/25/16 03:38 36.8 18 123/85 95 Room Air 03/24/16 09:14 1.50 Intake and Output 03/24/16 03/24/16 03/25/16 Cumulative From/Thru 15:00 23:00 07:00 03/23/16 14:29 - 03/25/16 06:25 Intake Total 2267 ml 670 ml 3487 ml Output Total 700 ml 1300 ml 2000 ml Balance 1567 ml -630 ml 1487 ml Intake Oral 600 ml 670 ml 1320 ml IV Total 1667 ml 0 ml 2167 ml Output Urine Total 700 ml 1300 ml 2000 ml # Voids 2 # Bowel Movements 1 2 Exam General/Constitutional: Well-developed, Well-nourished, alert and oriented x 3 Head / Eyes: Atraumatic, Normocephalic, PERRL ENT: Conjunctiva normal, No scleral icterus, RhinoRocket in place in right nostril, active bleeding right external naris noted, patient coughing up minimal amount of blood. Scant draining blood in oropharynx noted Neck: Full range of motion, Thyroidectomy scar Respiratory / Chest: Cough, breath sounds equal bilat, scattered expiratory wheezes, Cardiovascular: No gallop, No murmurs, No rubs, Peripheral circulation intact Heart Rate / Rhythm: Positive: Irreg irregular rhythm, Tachycardic Abdomen / GI: Soft, Non-tender, No guarding, No rebound, No distention Extremities: Vascular intact, Neuro intact Skin: Warm, Dry, No cyanosis Neurologic: Alert, Oriented, Nonfocal Psychiatric: Mood/affect normal, Behavior normal, Normal thought content Lab and Diagnostics Result Diagram: 03/25/16 03003/25/16299 X-Rays, CTs and MRIs PROCEDURE: X-RAY CHEST ONE VIEW, PORTABLE ([id number]) INDICATIONS: COUGH, Chest pain TECHNIQUE: One view of the chest was acquired. COMPARISON: [facility], CR, XR CHEST 2VW, 05/29/2015, 16:42. [facility], CR, XR CHEST 2VW, 01/01/2016, 10:30. [facility], CR, XR CHEST 1VW (PORTABLE), 01/22/2016, 13:27. FINDINGS: Surgical changes and devices: None. Lungs and pleura: There is right lower lobe infiltrate. No pleural effusions or pneumothorax. Lungs are clear. Mediastinum: Mediastinal contours appear normal. Heart size is at the upper limits of normal. There is aortic calcification consistent with atherosclerosis. Bones and chest wall: Calcified nodules in the right upper abdomen are again noted. No suspicious bony lesions. Overlying soft tissues appear unremarkable. IMPRESSION: 1. Right lower lobe infiltrate suspicious for pneumonia. 12-lead ECG 2:1 atrial flutter HR 134 Cardiac Echo Impressions Echocardiogram Interpretation Summary: There is mild concentric left ventricular hypertrophy. Left ventricular ejection fraction is estimated to be .35. There is moderate global hypokinesis of the left ventricle. There iis severe hypokinesis of the basal infero-septal and lateral apical segments There is moderate tricuspid regurgitation. The right ventricular systolic pressure is estimated at 47 mmHg assuming a right atrial pressure of 15 mm Hg. Compared to prior echo report on 2011, changes are noted. Electronically signed by: Espinoza Albright on Reading Physician:03/24/2016 05:31 PM Assessment & Plan Patient is a 81 year old female with a past medical history of cataracts, hypertension, asthma, arthritis, borderline diabetes . Admitted for treatment of nose bleed s/p cauterization, atrial fibrillation anticoagulated on Coumadin with RVR hemodynamically stable. Hospital Day 3. 1. Atrial fibrillation with RVR and cycling between flutter and fibrillation, acute, present on admission - Patient has an established history of continually being in atrial fibrillation - On tele patient HR 100-130 cycling between flutter and fibrillation - Pt has been on Coumadin and Cardizem for this pathology as outpatient - Pt seen to be super therapeutic, will hold Coumadin until INR become therapeutic - Continue telemtry - Discontinued diltiazem drip per cardiology - Discontinued digoxin per cardiology - Continue Metoprolol - Start Amiodarone drip per protocol - will continue to trend troponin given minor elevation (likely due to heart rate), trending down 2. Acute on chronic diastolic heart failure, present on admission, ongoing - Shortness of breath, pleural effusions, in the setting of negative procalcitonin and lactic acid, likely due to acute excerebration of diastolic HF - Last ECHO 2011, repeat ECHO ordered. EF 35.% - Start Spirolactone 12.5 mg PO QD - Furosemide 40 mg IV QD - Cardiology consulted, we appreciate their time and recommendations 3. Acute epistaxis, stable on admission, reactivated - Cauterized by ENT, prior to admission - Overnight 03/24/16 patient noted right nose bleed that woke her up, ED called to place RhinoRocket to control bleeding - ENT consulted to cauterized bleed, we appreciate their time and expertise - Bleeding controlled by cautery and wound packed with sterile dressing - Start Amoxicillin 500 PO BID per ENT 4.Pneumonia, likely CAP, acute, present on admission, ruled out - Patient has radiological and physical findings that suggest pneumonia - Continue Ipratropium neb Q6 - Discontinue ceftriaxone and azithromycin for treatment - Procalcitonin and lactic acid ordered, negative - Stop Guaifenesin PO Q12 ordered to help clear mucus 5. Hypertension - Patient has an established history of hypertension - Start lisinopril 2.5 mg PO QD dvt ppx via coumadin gi ppx not warranted Disposition: patient will likely discharge to home in 24-48 hours pending control of HR and improvement of respiratory status VTE Mechanical Devices: Intermittant Pneumatic CD Attending Statement The patient was seen and examined together with Dr. Mena on 03/25/2016 and I agree with the history, exam and plan as outlined in the note above. . GIN MENA DO Mar 25, 2016 06:48 Anil López MD Mar 26, 2016 14:59
[2016-03-26] VITALS (8 sets, daily range): BP systolic 117–161; BP diastolic 53–81; PULSE 60–74; RESP 16–26; O2SAT 94–98
[2016-03-26 04:02] LABS: BASOPHILS % (AUTO) 0.3 % (0-3); EOSINOPHILS % (AUTO) 2.3 % (0-5); MONOCYTES % (AUTO) 12.8 % (4-12); Mean Corpuscular Hemoglobin 30.5 pg (27.0-35.0); Mean Corpuscular Volume 93.3 fL (81-100); NEUTROPHILS % (AUTO) 64.1 % (40-74); Platelet Count 188 bil/L (150-400)
[2016-03-26 04:10] LABS: INR 1.79 ratio
[2016-03-26 04:19] LABS: Magnesium 1.7 mg/dL (1.6-2.6)
[2016-03-26] MEDS: guaiFENesin 600 mg ER12 Tablet PO SCH ×2 (08:39→19:31)
[2016-03-26] MEDS: MeTOProlol XL 50 mg ER24 Tablet PO SCH ×4 (08:40→20:41)
[2016-03-26] MEDS: Furosemide 10 mg/mL 4 mL Inj IVPUSH SCH (08:40)
--- NOTE | 2016-03-26 12:22 | PCM.PHAPRO ---
Progress epistaxis and rapid atrial fibrillation Indication: A.FIB Home Dose: 7.5 MOWEFR 5 MG AOD Date 03/26 INR 1.75 Dose: 5mg OT GOAL INR: 2-3 Initiating first dose at 5 mg to get back in therapeutic range. Exercise caution as patient presented with and inr of 3.66 on home dose. Pharmacy will continue to follow daily. Thank you for consulting pharmacy in the care of this patient. Trevor Gambino Mar 26, 2016 12:22
--- NOTE | 2016-03-26 13:44 | PROG NOTE ---
[address] [address] PROGRESS NOTE PATIENT: MARYCARMEN HILL : 1935 MR#: [id number] ADMIT: 03/23/2016 JOB ID: [id number] DATE: 03/26/2016 SUBJECTIVE: The patient is feeling much better. She got cauterized in her right nostril by ENT yesterday. She is not bleeding anymore. Her breathing is better as well. No active chest pain or new cardiovascular symptoms. In summary, this 81-year-old female who has a history of paroxysmal AFIB/flutter, who has been on Coumadin for many years, essential hypertension, borderline diabetes mellitus, lower extremity swelling, presented with recurrent epistaxis. She had a supratherapeutic INR of 3.66 as well. She was found to be in atrial flutter with fast ventricular rate. She underwent echocardiogram in the hospital which revealed LV ejection fraction 35% with global hypokinesis as well as there was some focal wall motion abnormalities including base to mid posterior lateral wall in my view, and distal inferior septum. There was moderate tricuspid regurgitation. Pulmonary artery systolic pressure about 47 mmHg. Yesterday I saw her. For better rate control she was started on amiodarone. Beta ibis was stabilized. For heart failure she was started on diuretics. Her troponin was abnormal. The possibility of tachycardia induced cardiomyopathy as well as some ischemic component. Demand ischemia was kept as well. She is being treated for possible underlying coronary artery disease as well. Today, I reviewed ENT recommendation. She is not actively bleeding. Recommendation is to continue Coumadin for temporary we have put her aspirin on hold as well. OBJECTIVE: Blood pressure 118/62, heart rate 60 and regular, respiratory rate 22, oxygen saturation 96%. Today no obvious JVD. Chest: No obvious rhonchi, but a few crepitations at the bases. CVS: S1 variable, P2 appears prominent. No S3, no S4. No significant murmur. Extremities: Mild pedal edema. Better than yesterday. Abdomen: No new changes. SHOEMAKING CUTTER: Alert. Oriented to time, place, and person. Telemetry: The patient has typical atrial flutter; now the rate is controlled. LABORATORIES: Sodium 136, potassium 3.6, BUN 16, creatinine 0.66. Troponin decreased to 0.025. Triglycerides 85, total cholesterol 140, LDL 79, HDL 44, hemoglobin 11.3, platelets 188. INR today 1.79. ASSESSMENT AND PLAN: No history of paroxysmal atrial fibrillation/flutter, with recurrence of atrial flutter with fast ventricular rate. Patient still in persistent atrial flutter. Patient has underlying subacute congestive heart failure with profound LV dysfunction with LV ejection fraction 35% with possibility of tachycardia induced cardiomyopathy as well as demand ischemia and suspicion for underlying ischemic cardiomyopathy as well. She got cauterized in right nostril yesterday. She will be back on Coumadin. Target INR between 2 and 3. I will put her back on aspirin 81 mg daily. Will see how she does. If there is no active bleeding will plan CRESCENCIO cardioversion. If there is no improvement in LV function with resumption of sinus rhythm we will recommend ischemic evaluation with left heart catheterization. Discussed the plan with the hospitalist team. TIME: Total time spent about 40 minutes.
--- NOTE | 2016-03-26 14:33 | PCM.PNMED ---
Subjective Date of Service Mar 26, 2016 Subjective Patient is a 81 year old female with a past medical history of cataracts, hypertension, asthma, arthritis, borderline diabetes . Admitted for treatment of nose bleed s/p cauterization, atrial fibrillation anticoagulated on Coumadin with RVR hemodynamically stable. Hospital Day 4. Overnight: no events reported Today: Patient reported that she is coughing up bright red blood, improved from yesterday. She denies fever, headache, chills, nausea, vomiting, dizziness, chest pain, chest pressure, syncope. ROS negative except as mentioned above. Exam Vital Signs Vital Sign - Last Date Time Temp Pulse Resp B/P Pulse Ox O2 Delivery O2 Flow Rate FiO2 03/26/16 03:26 36.4 60 26 155/63 96 Room Air 03/24/16 09:14 1.50 Intake and Output 03/25/16 03/25/16 03/26/16 Cumulative From/Thru 15:00 23:00 07:00 03/23/16 14:29 - 03/26/16 05:50 Intake Total 652 ml 1326 ml 999 ml 6464 ml Output Total 1650 ml 3650 ml Balance 652 ml 1326 ml -651 ml 2814 ml Intake Oral 1120 ml 790 ml 3230 ml IV Total 652 ml 206 ml 209 ml 3234 ml Output Urine Total 1650 ml 3650 ml # Voids 4 6 # Bowel Movements 2 Exam General/Constitutional: Well-developed, Well-nourished Head / Eyes: Atraumatic, Normocephalic, PERRL ENT: Conjunctiva normal, No scleral icterus, Dried blood in nostrils without any active bleeding. Neck: Full range of motion, Thyroidectomy scar Respiratory / Chest: Cough, breath sounds equal bilat, scattered expiratory wheezes, Cardiovascular: No gallop, No murmurs, No rubs, Peripheral circulation NL Heart Rate / Rhythm: Positive: Irreg irregular rhythm, Tachycardia Abdomen / GI: Soft, Non-tender, No guarding, No rebound, No distention Extremities: Vascular intact, Neuro intact Skin: Warm, Dry, No cyanosis Neurologic: Alert, Oriented, Nonfocal Psychiatric: Mood/affect normal, Behavior normal, Normal thought content IVs and Medications IV Fluids General/Constitutional: Well-developed, Well-nourished, alert and oriented x 3 HEENT: Atraumatic, Normocephalic, PERRLA, conjunctiva normal, No scleral icterus, Vaseline gauze nasal packing in place patient coughing up minimal amount of blood. Scant dried blood left and right nares, full range of motion in neck, no palpable lymph nodes, Thyroidectomy scar Respiratory: Cough, breath sounds equal bilat, scattered expiratory wheezes, no chest wall tenderness Heart: normal sinus rhythm with rate 60-70,no murmur gallop, rubs heard Abdomen: Soft, Non-tender, No guarding, No rebound, No distention Extremities: Vascular intact, Neuro intact Skin: Warm, Dry, No cyanosis Neurologic: Grossly neurologically intact, alert, oriented, gait normal, strength 4/4 in all extremities Lab and Diagnostics Result Diagram: 03/26/16 03203/26/16 032 X-Rays, CTs and MRIs PROCEDURE: X-RAY CHEST ONE VIEW, PORTABLE ([id number]) INDICATIONS: COUGH, Chest pain TECHNIQUE: One view of the chest was acquired. COMPARISON: [facility], CR, XR CHEST 2VW, 05/29/2015, 16:42. [facility], CR, XR CHEST 2VW, 01/01/2016, 10:30. [facility], CR, XR CHEST 1VW (PORTABLE), 01/22/2016, 13:27. FINDINGS: Surgical changes and devices: None. Lungs and pleura: There is right lower lobe infiltrate. No pleural effusions or pneumothorax. Lungs are clear. Mediastinum: Mediastinal contours appear normal. Heart size is at the upper limits of normal. There is aortic calcification consistent with atherosclerosis. Bones and chest wall: Calcified nodules in the right upper abdomen are again noted. No suspicious bony lesions. Overlying soft tissues appear unremarkable. IMPRESSION: 1. Right lower lobe infiltrate suspicious for pneumonia. 12-lead ECG 2:1 atrial flutter HR 134 Cardiac Echo Impressions Echocardiogram Interpretation Summary: There is mild concentric left ventricular hypertrophy. Left ventricular ejection fraction is estimated to be .35. There is moderate global hypokinesis of the left ventricle. There iis severe hypokinesis of the basal infero-septal and lateral apical segments There is moderate tricuspid regurgitation. The right ventricular systolic pressure is estimated at 47 mmHg assuming a right atrial pressure of 15 mm Hg. Compared to prior echo report on 2011, changes are noted. Electronically signed by: Espinoza Albright on Reading Physician:03/24/2016 05:31 PM Assessment & Plan Patient is a 81 year old female with a past medical history of cataracts, hypertension, asthma, arthritis, borderline diabetes . Admitted for treatment of nose bleed s/p cauterization, atrial fibrillation anticoagulated on Coumadin with RVR hemodynamically stable. Hospital Day 4. 1. Atrial fibrillation with RVR and cycling between flutter and fibrillation, acute, present on admission - Patient has an established history of continually being in atrial fibrillation - Continue tele - INR 1.7 - Restart Coumadin today 03/26 - Discontinued diltiazem drip per cardiology - Discontinued digoxin per cardiology - Continue Metoprolol - Stop Amiodarone drip - Start oral Amiodarone - Troponin trended down - Cardiology consulted, we appreciate their time and recommendations 2. Acute on chronic diastolic heart failure, present on admission, ongoing - Shortness of breath, pleural effusions, in the setting of negative procalcitonin and lactic acid, likely due to acute excerebration of diastolic HF - Last ECHO 2011, repeat ECHO ordered. EF 35.% - Continue Spirolactone 12.5 mg PO QD - Continue Furosemide 40 mg IV QD - Cardiology consulted, we appreciate their time and recommendations 3. Acute epistaxis, s/p second cauterization, stable - Cauterized by ENT, prior to admission - Overnight 03/24/16 patient noted right nose bleed that woke her up, ED called to place [facility] to control bleeding - ENT consulted to cauterized bleed, we appreciate their time and expertise - Bleeding controlled by cautery and wound packed with sterile dressing - Start Amoxicillin 500 PO BID per ENT 4.Pneumonia, likely CAP, acute, present on admission, ruled out - Patient has radiological and physical findings that suggest pneumonia - Continue Ipratropium neb Q6 - Discontinue ceftriaxone and azithromycin for treatment - Procalcitonin and lactic acid ordered, negative - Stop Guaifenesin PO Q12 ordered to help clear mucus 5. Hypertension - Patient has an established history of hypertension - Start lisinopril 2.5 mg PO QD dvt ppx via coumadin gi ppx not warranted Disposition: patient will likely discharge to home in 24-48 hours pending control of HR and improvement of respiratory status VTE Mechanical Devices: Intermittant Pneumatic CD Attending Statement The patient was seen and examined together with Dr. Mena on 03/26/2016 and I agree with the history, exam and plan as outlined in the note above. . GIN MENA DO Mar 26, 2016 06:52 Anil López MD Mar 26, 2016 15:00
--- NOTE | 2016-03-26 18:06 | NUR ---
A flutter/ Amiodarone Patient continues to be in Aflutter with rate in the 60s-70s. Amiodarone drip DC"d and PO amiodarone to be started in the AM. Plan to have cardioversion on Mon or per Dr Bowling
--- NOTE | 2016-03-26 22:18 | NUR ---
VS/ Lung sounds Pt HR in the 60's with or without movement. Pt able to transfer from bed to chair without issues. Lung sounds clearer, less crackles as with 03/25 ekg manager. Die Welder gave pt full bed bath and oral care.
[2016-03-27] VITALS (8 sets, daily range): BP systolic 120–188; BP diastolic 55–80; PULSE 68–96; RESP 16–28; O2SAT 92–97
[2016-03-27 02:56] LABS: BASOPHILS % (AUTO) 0.5 % (0-3); EOSINOPHILS % (AUTO) 2.4 % (0-5); MONOCYTES % (AUTO) 11.2 % (4-12); Mean Corpuscular Hemoglobin 30.2 pg (27.0-35.0); Mean Corpuscular Volume 93.2 fL (81-100); NEUTROPHILS % (AUTO) 61.7 % (40-74); Platelet Count 207 bil/L (150-400)
[2016-03-27 03:06] LABS: INR 1.57 ratio
--- NOTE | 2016-03-27 07:25 | PCM.PHAPRO ---
Progress epistaxis and rapid atrial fibrillation Date Mar 27-Feb INR 1.79 1.57 INR change -0.22 Warf Dose 5 7.5 Trevor Gambino Mar 27, 2016 07:25
[2016-03-27] MEDS: guaiFENesin 600 mg ER12 Tablet PO SCH ×2 (08:28→20:34)
[2016-03-27] MEDS: MeTOProlol XL 50 mg ER24 Tablet PO SCH ×3 (08:28→20:34)
[2016-03-27] MEDS: Furosemide 10 mg/mL 4 mL Inj IVPUSH SCH (08:29)
--- NOTE | 2016-03-27 14:25 | NUR ---
Social Work: Continued Discharge Planning D: Pt discussed in am rounds. Pt is on day 4 of stay and still requiring hospitalization for rate control. Pt may require cardioversion tomorrow, per MD at rounds. Pt remains I during admission. DIRECTOR SUPPLIER QUALITY met with pt at bedside to confirm discharge plan. She agrees that once medically stable she will be discharging home with her family to transport. She states she is eager to leave but understands that she is not ready at this time. A: Pt who remains I during hospitalization. P: Anticipate pt to discharge home via POV once medically stable; DIRECTOR SUPPLIER QUALITY to continue to follow if needs arise. JAMES Whitlock
--- NOTE | 2016-03-27 16:30 | NUR ---
Tele/Activity Patient continues to be in A flutter with a rate in the 60s-80s. Patient out of bed and ambulating in ace without difficulty. Up independently in room. Plan is to cardiovert her tomorrow morning.
--- NOTE | 2016-03-27 16:39 | PCM.PNMED ---
Subjective Date of Service Mar 27, 2016 Subjective Vivien Castillo is a 81 year old female with a past medical history of cataracts, hypertension, asthma, arthritis, borderline diabetes. Admitted for treatment of nose bleed s/p cauterization, atrial fibrillation/flutter anticoagulated on Coumadin with RVR hemodynamically stable. Hospital Day 5. Overnight: No acute events. Today: Patient is still concerned about being discharged home as soon as possible. She denies fever, headache, chills, nausea, vomiting, dizziness, chest pain, chest pressure. . ROS negative except as mentioned above. Exam Vital Signs Vital Sign - Last Date Time Temp Pulse Resp B/P Pulse Ox O2 Delivery O2 Flow Rate FiO2 03/27/16 11:55 36.7 75 28 120/75 96 Room Air 03/24/16 09:14 1.50 Intake and Output 03/26/16 03/26/16 03/27/16 Cumulative From/Thru 15:00 23:00 07:00 03/23/16 14:29 - 03/27/16 04:11 Intake Total 880 ml 200 ml 7544 ml Output Total 1950 ml 1000 ml 6600 ml Balance -1070 ml -800 ml 944 ml Intake Oral 725 ml 200 ml 4155 ml IV Total 155 ml 3389 ml Output Urine Total 1950 ml 1000 ml 6600 ml # Voids 6 # Bowel Movements 0 2 Exam General/Constitutional: Well-developed, Well-nourished Head / Eyes: Atraumatic, Normocephalic, PERRL ENT: Conjunctiva normal, No scleral icterus, Dried blood in nostrils without any active bleeding. Neck: Full range of motion, Thyroidectomy scar Respiratory / Chest: Cough, breath sounds equal bilat, scattered expiratory wheezes and rhonchi Cardiovascular: No gallop, No murmurs, No rubs, Peripheral circulation NL Heart Rate / Rhythm: Positive: Irreg irregular rhythm, Tachycardia Abdomen / GI: Soft, Non-tender, No guarding, No rebound, No distention Extremities: Vascular intact, Neuro intact Skin: Warm, Dry, No cyanosis Neurologic: Alert, Oriented, Nonfocal Psychiatric: Mood/affect normal, Behavior normal, Normal thought content IVs and Medications Medications Reviewed: Medications were reviewed in detail Lab and Diagnostics Result Diagram: 03/27/168 03/27/168 X-Rays, CTs and MRIs X-RAY CHEST ONE VIEW, PORTABLE IMPRESSION: 1. Right lower lobe infiltrate suspicious for pneumonia. Approved by: Jean Toure M.D. on 03/23/2016 at 15:47 12-lead ECG 2:1 atrial flutter HR 134 Cardiac Echo Impressions Echocardiogram Interpretation Summary: There is mild concentric left ventricular hypertrophy. Left ventricular ejection fraction is estimated to be .35. There is moderate global hypokinesis of the left ventricle. There is severe hypokinesis of the basal infero-septal and lateral apical segments There is moderate tricuspid regurgitation. The right ventricular systolic pressure is estimated at 47 mmHg assuming a right atrial pressure of 15 mm Hg. Compared to prior echo report on 2011, changes are noted. Electronically signed by: Espinoza Albright on03/24/2016 05:31 PM Assessment & Plan Vivien Castillo is a 81 year old female with a past medical history of cataracts, hypertension, asthma, arthritis, borderline diabetes. Admitted for treatment of nose bleed s/p cauterization, atrial fibrillation/flutter anticoagulated on Coumadin with RVR hemodynamically stable. Hospital Day 5. 1. Atrial fibrillation with RVR and cycling between flutter and fibrillation, acute, present on admission - Patient has an established history of continually being in atrial fibrillation - Continue tele - INR 1.57 - Restart Coumadin today 03/26 - Discontinued diltiazem drip per cardiology - Discontinued digoxin per cardiology - Continue Metoprolol - Stopped Amiodarone drip - Start oral Amiodarone - Troponin trended down - Cardiology consulted, we appreciate their time and recommendations - Patient is to have a CRESCENCIO and cardioversion tomorrow followed by a stress test - Dr. Bowling would like the patient to have an additional dose of warfarin to increase her INR to above 2 2. Acute on chronic systolic heart failure, present on admission, ongoing - Shortness of breath, pleural effusions, in the setting of negative procalcitonin and lactic acid, likely due to acute excerebration of diastolic HF - Last ECHO in 2011 fairly normal, repeat ECHO showing EF of 35% - Continue Spirolactone 12.5 mg PO QD - Continue Furosemide 40 mg IV QD - Continue Lipitor, lisinopril and metoprolol. - Cardiology consulted, we appreciate their time and recommendations 3. Acute epistaxis, s/p second cauterization, stable - Cauterized by ENT, prior to admission - Overnight 03/24/16 patient noted right nose bleed that woke her up, ED called to place [facility] to control bleeding - ENT consulted to cauterized bleed, we appreciate their time and expertise - Bleeding controlled by cautery and wound packed with sterile dressing - Continue Amoxicillin 500 PO BID per ENT 4. Pneumonia, likely CAP, acute, present on admission, ruled out - Patient has radiological and physical findings that suggest pneumonia - Continue Ipratropium neb Q6 - Discontinued ceftriaxone and azithromycin for treatment - Procalcitonin and lactic acid negative - Stop Guaifenesin PO Q12 ordered to help clear mucus 5. Hypertension, present on admission, ongoing - Patient has an established history of hypertension - Start lisinopril 2.5 mg PO QD DVT ppx via coumadin Disposition: Patient will likely discharge to home in 24-48 hours pending cardioversion and stress test. VTE Mechanical Devices: Intermittant Pneumatic CD Attending Statement The patient was seen and examined together with Dr. Tam on 03/27/2016 and I agree with the history, exam and plan as outlined in the note above. . Dolores Tam DO Mar 27, 2016 15:53 Anil López MD Apr 01, 2016 16:06
--- NOTE | 2016-03-27 16:39 | PROG NOTE ---
[address] [address] PROGRESS NOTE PATIENT: MARYCARMEN HILL : 1935 MR#: [id number] ADMIT: 03/23/2016 JOB ID: [id number] DATE: 03/27/2016 SUBJECTIVE: The patient is feeling better. Her shortness of breath has improved. She is not bleeding anymore from right nostril. No palpitations, dizziness, or syncope. OBJECTIVE: Blood pressure 120/75, heart rate 75, respiratory rate 23- 28, oxygen saturation 96% on room air. Neck: No apparent JVD. Chest: At present, no obvious crepitation. Few rhonchi at the bases. CVS: S1 variable. P2 appears prominent. No S3, no S4. No significant murmur. Abdomen: No obvious hepatosplenomegaly. Extremity: Mild pedal edema. WORKFORCE STAFFING ADVISOR: Alert, oriented to time, place, and person. No obvious motor deficit. Telemetry: Atrial flutter with controlled rate. LABORATORY: Sodium 139, potassium 3.9, BUN 15, creatinine 0.66, hemoglobin 12.4, platelets 207. INR 1.57. ASSESSMENT/PLAN: Known history of paroxysmal atrial fibrillation/flutter with recurrence of atrial flutter with fast ventricular rate with underlying left ventricular dysfunction with left ventricular ejection fraction 35% with possibility of tachycardia-induced cardiomyopathy. However, suspicion for underlying coronary artery disease as well with systolic congestive heart failure in the setting of atrial flutter with fast ventricular rate, recurrent right nostril epistaxis. She has been cauterized in the right nostril. She is not bleeding anymore. She is responding to the medical treatment. With introduction of amiodarone, her rate is better controlled. She is back on Coumadin. She is tolerating anti-platelet therapy. Discussed with the patient plan for CRESCENCIO cardioversion tomorrow. Pharmacist informed to adjust the Coumadin to have INR more than 2. Target INR between 2 and 3. Benefits and risks of CRESCENCIO cardioversion which include, but not limited to, risk of GI bleed, GI perforation, aspiration, stroke, asystole, , anesthesia related complication, etc. and details discussed with the patient. She verbalizes understanding. She denies any dysphagia or stomach ulcer or cirrhosis or esophageal varices or absolute contraindication for CRESCENCIO cardioversion. Meanwhile, I will increase lisinopril to 2.5 mg twice a day. After cardioversion, will recommend continuation of amiodarone for short term. She will need ischemic evaluation. Tomorrow, my associate, Dr. Bhatia will be available to see the patient. Total time spent today about 45 minutes.
[2016-03-27] MEDS ORDERED: Warfarin 5 MG, Warfarin 2.5 MG PO ONE ×2 (17:00)
[2016-03-28] VITALS (11 sets, daily range): BP systolic 118–198; BP diastolic 56–83; PULSE 60–92; RESP 16–20; O2SAT 94–98
--- NOTE | 2016-03-28 02:02 | NUR ---
tele tele=afib/aflutter ivcd in the 80's murmur auscultated, pt denies cp, bp stable, afebrile pt a/o times three, up in chair for dinner, amb with sba, ls-clear after cough, ra sats upper 90's, denies sob, denies n/v, denies pain, right nasal packing in place, no bleeding noted, plan: monitor for bleeding, npo after mn for peter and cardioversion in am, see assessment charting, report given to next rn just after mn,
[2016-03-28 02:56] LABS: BASOPHILS % (AUTO) 0.4 % (0-3); EOSINOPHILS % (AUTO) 2.4 % (0-5); MONOCYTES % (AUTO) 12.4 % (4-12); Mean Corpuscular Hemoglobin 29.8 pg (27.0-35.0); Mean Corpuscular Volume 93.5 fL (81-100); NEUTROPHILS % (AUTO) 63.1 % (40-74); Platelet Count 237 bil/L (150-400)
[2016-03-28 03:11] LABS: INR 1.66 ratio
[2016-03-28 03:26] LABS: Magnesium 1.8 mg/dL (1.6-2.6)
[2016-03-28] MEDS: Furosemide 10 mg/mL 4 mL Inj IVPUSH SCH (08:43)
[2016-03-28] MEDS: MeTOProlol XL 50 mg ER24 Tablet PO SCH (08:44)
[2016-03-28] MEDS: guaiFENesin 600 mg ER12 Tablet PO SCH ×2 (08:44→19:58)
--- NOTE | 2016-03-28 09:38 | DRSVH ---
PROCEDURE: X-RAY CHEST ONE VIEW, PORTABLE ([id number]) INDICATIONS: cough TECHNIQUE: One view of the chest was acquired. COMPARISON: [facility], CR, CHEST 2VW, 05/02/2013, 14:29. [facility], CR, CHEST 2VW, 07/25/2014, 10:27. [facility], CR, XR CHEST 1VW (PORTABLE), 01/22/2016, 13:27. [facility], CR, XR CHEST 1VW (PORTABLE), 03/23/2016, 15:12. FINDINGS: Surgical changes and devices: None. Lungs and pleura: Edema has diminished as well as bibasilar patchy airspace opacities. Mediastinum: Mediastinal contours appear normal. Heart size is normal. Bones and chest wall: No suspicious bony lesions. Overlying soft tissues appear unremarkable. 2 ro ughly 1 cm rounded radiodensities projected over the proximal left humeral head and proximal shaft wh ich cannot be further localized. IMPRESSION: 1. Resolving edema and/or pneumonia involving the lung bases. 2. Several rounded radiodensities projected over the left shoulder which cannot be further localized. If indicated two-view left humeral series could be performed for further localization. Dictated by: Tahddeus RAMIREZ Interpreted: Danielle Torres MD on 03/28/2016 at 9:35 Transcribed by: ROOSEVELT on 03/28/2016 at 9:37 Approved by: Danielle Torres M.D. on 04/01/2016 at 11:54
[2016-03-28] MEDS: Ipratropium 0.02% 0.5 mg/2.5 mL Inhalation Solution NEB SCH ×3 (09:57→21:13)
--- NOTE | 2016-03-28 11:25 | PCM.PNMED ---
Subjective Date of Service Mar 28, 2016 Subjective Vivien Castillo is a 81 year old female with a past medical history of cataracts, hypertension, asthma, arthritis, borderline diabetes. Admitted for treatment of nose bleed s/p cauterization, atrial fibrillation/flutter anticoagulated on Coumadin with RVR, hemodynamically stable, acute excerebration of systolic heart failure. Hospital Day 6. Overnight: No acute events. Today: Patient stated that she continue to have small amounts of blood draining down into her throat and continue to have a non productive cough, otherwise no complaints. Patient denies chest pain, chest pressure, syncope, nausea, vomiting , diarrhea, constipation. ROS negative except as mentioned above. Exam Vital Signs Vital Sign - Last Date Time Temp Pulse Resp B/P Pulse Ox O2 Delivery O2 Flow Rate FiO2 03/28/16 02:46 36.5 60 20 152/72 95 Room Air 03/24/16 09:14 1.50 Intake and Output 03/27/16 03/27/16 03/28/16 Cumulative From/Thru 14:59 22:59 06:59 03/23/16 14:29 - 03/28/16 06:18 Intake Total 780 ml 400 ml 8724 ml Output Total 1375 ml 900 ml 8875 ml Balance -595 ml -500 ml -151 ml Intake Oral 780 ml 400 ml 5335 ml IV Total 3389 ml Output Urine Total 1375 ml 900 ml 8875 ml # Voids 4 10 # Bowel Movements 2 Exam General/Constitutional: Well-developed, well-nourished, alert and oriented x 3 , able to ambulate without assistance Head / Eyes: Atraumatic, Normocephalic, PERRLA ENT: Conjunctiva normal, no scleral icterus, dried blood in nostrils without any active bleeding. No blood noted in oropharynx Neck: Full range of motion, Thyroidectomy scar Respiratory / Chest: Cough, breath sounds equal bilat, scattered expiratory wheezes and rhonchi Cardiovascular: No gallop, No murmurs, No rubs, Peripheral circulation NL Heart Rate / Rhythm: Positive: Irreg irregular rhythm, Tachycardia Abdomen / GI: Soft, Non-tender, No guarding, No rebound, No distention Extremities: Vascular intact, Neuro intact Skin: Warm, Dry, No cyanosis Neurologic: Alert, Oriented, Nonfocal Psychiatric: Mood/affect normal, Behavior normal, Normal thought content IVs and Medications Medications Reviewed: Medications were reviewed in detail Lab and Diagnostics Result Diagram: 03/28/16 0230 03/28/16 0230 X-Rays, CTs and MRIs X-RAY CHEST ONE VIEW, PORTABLE IMPRESSION: 1. Resolving edema and/or pneumonia involving the lung bases. 2. Several rounded radiodensities projected over the left shoulder which cannot be further localized. If indicated two-view left humeral series could be performed for further localization. Dictated by: Thaddeus Reza RRA Interpreted: Danielle Torres MD on 03/28/2016 at 9:35 Transcribed by: ROOSEVELT on 03/28/2016 at 9:37 12-lead ECG 2:1 atrial flutter HR 134 Cardiac Echo Impressions Echocardiogram Interpretation Summary: There is mild concentric left ventricular hypertrophy. Left ventricular ejection fraction is estimated to be .35. There is moderate global hypokinesis of the left ventricle. There is severe hypokinesis of the basal infero-septal and lateral apical segments There is moderate tricuspid regurgitation. The right ventricular systolic pressure is estimated at 47 mmHg assuming a right atrial pressure of 15 mm Hg. Compared to prior echo report on 2011, changes are noted. Electronically signed by: Espinoza Albright on03/24/2016 05:31 PM Assessment & Plan Vivien Castillo is a 81 year old female with a past medical history of cataracts, hypertension, asthma, arthritis, borderline diabetes. Admitted for treatment of nose bleed s/p cauterization, atrial fibrillation/flutter anticoagulated on Coumadin with RVR hemodynamically stable, acute excerebration of systolic heart failure. Hospital Day 6. 1. 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 Acute on chronic systolic heart failure, present on admission, ongoing - Shortness of breath, pleural effusions, in the setting of negative procalcitonin and lactic acid, likely due to acute excerebration of systolic HF - Last ECHO in 2011 fairly normal, repeat ECHO showing EF of 35% - Continue Spirolactone 12.5 mg PO QD - Continue Furosemide 40 mg IV QD - Continue Lipitor, lisinopril and metoprolol. increased lisinopril to 5 mg bid - Cardiology consulted, we appreciate their time and recommendations 3. 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 Radiodensities near left shoulder visualized on CXR, not present on admission , ongoing - Localization and etiology unclear at present time - 2-view XR of left shoulder ordered for better localization and visualization - Consider MR if further imaging is needed - Continue to monitor 5. Hypertension, present on admission, ongoing - Patient has an established history of hypertension - Continue lisinopril 2.5 mg PO QD 6. Acute epistaxis, s/p second cauterization, stable - Cauterized by ENT, prior to admission - Overnight 03/24/16 patient noted right nose bleed that woke her up, ED called to place [facility] to control bleeding - ENT consulted to cauterized bleed, we appreciate their time and expertise, requested follow up while in hospital today or tomorrow as patient will likely stay inpatient until tomorrow at the earliest. - Bleeding controlled by cautery and wound packed with sterile dressing - Continue Amoxicillin 500 PO BID per ENT stop 03/29 7. Pneumonia, likely CAP, acute, present on admission, ruled out - Patient has radiological and physical findings that suggest pneumonia - Continue Ipratropium neb Q6 - Discontinued ceftriaxone and azithromycin for treatment - Procalcitonin and lactic acid negative - Stop Guaifenesin PO Q12 ordered to help clear mucus DVT ppx via coumadin Disposition: Patient will likely discharge to home tomorrow with PCP and cardiology follow up. patient seen and examined with Dr Mena .I agree with the history,exam, impression and plan as outlined above Pain Evaluation: Adequate Pain Control VTE Mechanical Devices: Intermittant Pneumatic CD GIN MENA DO Mar 28, 2016 06:36 Felice Solis MD Mar 28, 2016 18:16
[2016-03-28] MEDS: Diltiazem CD 180 mg ER24 Capsule PO SCH (17:01)
--- NOTE | 2016-03-28 18:03 | NUR ---
Aflutter/ambulation Cardiac: Pt denies CP. Tele: Aflutter 60s with IVCD, Pt did have episode of RVR 110-120s last night per tele. CRESCENCIO was cancelled due to non-therapeutic INR. Resp: Denies SOB at rest, RA SpO2 95% on RA. GI/: Pt denies N/V. Neuro: A&Ox3, SANCHEZ, Pt up and ambulating in halls.
--- NOTE | 2016-03-28 19:37 | PROG NOTE ---
[address] [address] PROGRESS NOTE PATIENT: MARYCARMEN HILL : 1935 MR#: [id number] ADMIT: 03/23/2016 JOB ID: [id number] DATE: 03/28/2016 CHIEF COMPLAINT: The patient came in with epistaxis. She has chronic atrial fibrillation on Coumadin and diltiazem. The bleeding was controlled, her atrial fibrillation rate has been controlled. She has now been changed to amiodarone and metoprolol. SUBJECTIVE: She denies any problems with chest pain, shortness of breath, orthopnea, PND. Telemetry shows controlled rates of what might be atrial tachycardia versus atypical flutter. PHYSICAL EXAMINATION: General: In no acute distress. Speaking in full sentences. Heart rate 64, blood pressure 118/61, sats are 97% on room air. General: In no acute distress, speaking in full sentences without apparent shortness of breath. Head and neck exam: Normocephalic, atraumatic. Heart: Occasionally irregular. Lungs: Clear. Abdomen is soft. Extremities: Warm. LABORATORIES: Show an INR of 2.7 which is now down at 1.79, 1.57 and 1.66 three days in a row. CBC shows white count 6.8, H and H 11.9 and 37.3. Platelets of 237. Chemistry shows sodium 140, chloride and bicarb 100 and 30 respectively. BUN and creatinine 24 and 0.78. IMAGING: An echocardiogram with estimated EF 35%. In looking at it myself I would say it is closer to 45-50. Appears global. IMPRESSION: The patient has chronic atrial fibrillation versus atrial tachycardia. She is followed up in primary care. Her last echocardiogram was I believe in 2010 or 2011 and has not had a recent echocardiogram. She has not had any problems with dyspnea on exertion or other concerning symptoms. Given the chronic atrial fibrillation or tachycardia, I am not certain if she would remain in sinus rhythm, especially on the current agents alone, and with her decreased INRs she still has some risks of stroke, even with transesophageal echocardiogram. In light of the fact that she is rate controlled and I am not certain that she is symptomatic at all, I would plan on a trial of having her walk around and treat her with conservative management and follow up with the business operations consultant if the patient wishes to do so. PLAN/RECOMMENDATIONS: 1. We can continue amiodarone as long as the patient understands that she needs to have a follow-up INR closer than her usual followup since it does affect the INR. We could transition her back to diltiazem and see how she does. She has had some other medications added given the reduced heart function 2. Again, she has not seen a business operations consultant ever but has been followed by her primary care provider and she could certainly follow up with Dr. Bowling or myself in Cardiology. I will ask her to walk around and see how she feels today and see how her heart rates track in the day. 45 minutes was spent reviewing the chart details, telemetry, the patient's echocardiogram and speaking with the patient and her family MTDD
[2016-03-28] MEDS ORDERED: guaiFENesin DM 200-20 mg/10 mL Syrup PO PRN (22:05)
[2016-03-29 03:06] LABS: Mean Corpuscular Hemoglobin 30.1 pg (27.0-35.0); Mean Corpuscular Volume 93.7 fL (81-100)
[2016-03-29 03:17] LABS: INR 2.1 ratio
[2016-03-29 03:25] VITALS: BP 124/60; PULSE 69; RESP 16; O2SAT 95
--- NOTE | 2016-03-29 05:50 | NUR ---
Coughing / Tele / VSS Pt c/o intermittent course coughing and being unable to sleep. MD notified and new order for Guaifenesin DM syrup ordered for cough and administered. Melatonin 2mg administered for sleep. Pt resting calmly thereafter, and coughing greatly decreased. No c/o chest pain or discomfort, Tele Aflutter/Afib with IVCD, with HR 60-70s per [employer]. VS stable.
[2016-03-29] MEDS: Ipratropium 0.02% 0.5 mg/2.5 mL Inhalation Solution NEB SCH ×2 (05:54→12:22)
[2016-03-29 05:56] VITALS: PULSE 87; RESP 20; O2SAT 90
[2016-03-29 08:21] VITALS: BP 139/72; PULSE 65; RESP 16; O2SAT 92
--- NOTE | 2016-03-29 09:09 | PCM.PHAPRO ---
Progress epistaxis and rapid atrial fibrillation Warfarin Indication: AFib Home Dose 7.5mg M,W,F with 5mg other days Recent dose hx; Date Mar 27-Mar 28-Mar 29-Feb 27-Mar 31-Apr 01-Apr 02-Mar INR 1.79 1.57 1.66 2.12 INR change -0.22 0.09 0.46 Warf Dose 5 10 7.5 5 p/ Anticipate continuation of home regimen./Diallo Chairez Pharm D Mar 29, 2016 09:09
[2016-03-29] MEDS: guaiFENesin 600 mg ER12 Tablet PO SCH (09:13)
[2016-03-29] MEDS: Furosemide 10 mg/mL 4 mL Inj IVPUSH SCH (09:13)
[2016-03-29] MEDS: Diltiazem CD 180 mg ER24 Capsule PO SCH (09:13)
--- NOTE | 2016-03-29 11:27 | DRSVH ---
PROCEDURE: X-RAY LEFT HUMERUS, MINIMUM TWO VIEWS ([id number]) INDICATIONS: left shoulder opacity TECHNIQUE: 2 views of the humerus were acquired. COMPARISON: [facility], CR, XR CHEST 1VW (PORTABLE), 03/28/2016, 8:53. FINDINGS: Bones: No fractures or dislocations. No suspicious bony lesions. Joint degeneration redemonstrated involving acromioclavicular and glenohumeral joints. Soft tissues: Dystrophic calcification seen adjacent to the upper aspect of the proximal humeral shaf t laterally and the more proximal rounded density seen on prior examination is not definitively ident ified. IMPRESSION: 1. Dystrophic calcification seen corresponding to the more inferior rounded density seen on prior [address] x-ray and the proximal density previous seen noted is not identified. Dictated by: Thaddeus RAMIREZ Interpreted: Wlado Vargas MD on 03/29/2016 at 11:25 Transcribed by: DALIA on 03/29/2016 at 11:26 Approved by: Juve Vargas M.D. on 03/29/2016 at 14:14
--- NOTE | 2016-03-29 11:31 | PCM.DIMED ---
GIN MENA DO 03/29/16 1131: Discharge Instructions Date of Service Mar 29, 2016 Dates of Hospitalization Mar 23, 2016 at 17:21 Discharge Diagnosis Discharge Diagnosis 1. Atrial fibrillation with RVR and cycling between flutter and fibrillation 2. Acute on chronic systolic heart failure 3. 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 Radiodensities near left shoulder visualized on CXR 5. Hypertension 6. Acute epistaxis 7. Pneumonia Diet Heart Healthy Activity Limited until seen by PCP Call your provider Fever or Chills, Shortness of breath, Bleeding, Chest pain, Vomitting, Excessive diarrhea, Weakness (unilateral), Other (uncontrolled nose bleed) Patient Instructions 1. Atrial fibrillation with RVR and cycling between flutter and fibrillation, acute, present on admission, stable - INR 2.1 03/29/16 - Continue Coumadin7.5mg M,W,F with 5mg other days by mouth. You will need to have your blood INR tested twice a week, please schedule appointments with the Anticoagulation clinc for later this week and twice a week for the next four weeks. - Continue Amiodarone 200 mg by mouth daily - Cardiology consulted, we appreciate their time and recommendations 2. Acute on chronic systolic heart failure, present on admission, ongoing - Continue Spirolactone 12.5 mg by mouth daily - Continue Furosemide 40 mg by mouth daily - Continue lisinopril to 5 mg by mouth daily - Continue Atorvastatin 40 mg by mouth daily 3. Radiodensities near left shoulder visualized on CXR, not present on admission , ongoing - Left humerus X-ray taken, pending at time of discharge - Follow up with your primary doctor to determine if further imaging is necessary 4. Hypertension, present on admission, ongoing - Continue lisinopril to 5 mg by mouth daily 5. Acute epistaxis, s/p second cauterization, stable - Keep scheduled appointment with ENT today 03/29/16 at 2:30 PM - Continue Amoxicillin 500 PO BID per ENT stop today 7. Pneumonia, likely CAP, acute, present on admission, ruled out - Follow up with your primary Doctor in one week Follow-up plan Follow up with your primary doctor in one week Follow up with ENT today Follow up with Cardiology at your next scheduled appointment Follow-up Provider: Mario Tobar PA-C Follow-up with PCP in: 1 week Felice Solis MD 03/29/16 1511: Discharge Instructions Attending's Statement patient seen and examined with Dr Mena and agree with above GIN MENA DO Mar 29, 2016 11:31 Felice Solis MD Mar 29, 2016 15:11
[2016-03-29] MEDS ORDERED: WARF5TAB7 PO ×2 (11:38)
[2016-03-29] MEDS ORDERED: LISI-571 PO (11:38)
[2016-03-29] MEDS ORDERED: DILT180C53 PO (11:38)
[2016-03-29] MEDS ORDERED: ATOR40TA69 PO (11:38)
[2016-03-29] MEDS ORDERED: AMOX500T2 PO (11:38)
[2016-03-29] MEDS ORDERED: AMIO200T PO (11:38)
[2016-03-29] MEDS ORDERED: ATRINH INH (11:38)
[2016-03-29] MEDS ORDERED: FURO40SO4 PO (11:38)
[2016-03-29] MEDS ORDERED: SPIR25TA PO (11:38)
[2016-03-29] MEDS ORDERED: FURO40TA4 PO (11:58)
[2016-03-29 12:22] VITALS: PULSE 66; RESP 18; O2SAT 94
--- NOTE | 2016-03-29 13:16 | NUR ---
Social Work Note: Discharge Data& Assessment: Per pt is medically ready to discharge home via POV. Vivien Castillo is a 81 year old female admitted on 03/23/2016 for A FIB W/ RVR elevated troponin. Per pt is medically improved and ready to discharge home with family support. SW met with pt and pt son at bedside to confirm discharge plan and assess for any unmet needs. Pt son is transporting pt home today. Pt has an appointment with an outpt provider this afternoon. Pt and pt son denies any other needs. Pt is ambulating in her room independently. No other discharge needs identified. Plan: Per pt is medically improved and ready to discharge home with family support. Pt son is transporting pt home today. Pt and pt son denies any other needs. Pt is ambulating in her room independently. No other discharge needs identified. JAMES Faulkner
--- NOTE | 2016-03-29 13:19 | NUR ---
Tele/Discharge No c/o chest pain or discomfort, Tele Aflutter/Afib with IVCD, with HR 60-70s per [employer]. VS stable. D/C education completed with pt and son, both deny questions post teaching. IV d/c'd in tact. Pt has appt at [facility] at 1430, pt is going to leave just prior to appointment, son to drive pt. Addendum: 03/29/16 at 1410 by MEENA PANCHAL RN pt d/c'd home with son at 1400, declined w/c transport. All belongings sent with pt at time of d/c.
--- NOTE | 2016-03-29 18:30 | PCM.DC.MED ---
Discharge Summary Date of Service Mar 29, 2016 Dates of Hospitalization Date of Hospital Admission Mar 23, 2016 at 17:21 Date of Discharge: Mar 29, 2016 Providers: Admitting Physician: Lars Amin MD Primary Care Physician: Prashanth Nevarez MD Attending Physician: Lars Amin MD Diagnosis at Time of Discharge Diagnosis at Time of Discharge 1. Atrial fibrillation with RVR and cycling between flutter and fibrillation 2. Acute on chronic systolic heart failure 3. 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 Radiodensities near left shoulder visualized on CXR 5. Hypertension 6. Acute epistaxis 7. Pneumonia Consultations Cardiology Procedures XRay, CTs & MRIs X-RAY CHEST ONE VIEW, PORTABLE IMPRESSION: 1. Resolving edema and/or pneumonia involving the lung bases. 2. Several rounded radiodensities projected over the left shoulder which cannot be further localized. If indicated two-view left humeral series could be performed for further localization. Dictated by: Thaddeus Reza RRA Interpreted: Danielle Torres MD on 03/28/2016 at 9:35 Transcribed by: ROOSEVELT on 03/28/2016 at 9:37 ECG 12 Lead 2:1 atrial flutter HR 134 Cardiac Echo Impression Echocardiogram Interpretation Summary: There is mild concentric left ventricular hypertrophy. Left ventricular ejection fraction is estimated to be .35. There is moderate global hypokinesis of the left ventricle. There is severe hypokinesis of the basal infero-septal and lateral apical segments There is moderate tricuspid regurgitation. The right ventricular systolic pressure is estimated at 47 mmHg assuming a right atrial pressure of 15 mm Hg. Compared to prior echo report on 2011, changes are noted. Electronically signed by: Espinoza Albright on03/24/2016 05:31 PM Brief History Copied from H&P "Patient is a 81 year old female with a pmh as outlined below that is presenting with rapid atrial fibrillation. Patient is known patient with atrial fibrillation that is on coumadin. Patient yesterday suffered from a bout of epistaxis that was severe enough that it warranted emt visit. air quality chemist were able to cauterize the wound after several hours. Afterwards when discussing the event with her physician he asked that the patient go to the ER to assess for possible blood loss anemia. While getting worked up in the ER the patient was seen to be in rapid atrial fibrillation. Patient when told of this had no symptoms stemming from it. It was decided that the patient should be rate controlled before being discharged to back home. Patient is currently hemodynamically stable and will be admitted." Hospital Course Vivien Castillo is a 81 year old female with a past medical history of cataracts, hypertension, asthma, arthritis, borderline diabetes. Admitted for treatment of nose bleed s/p cauterization, atrial fibrillation/flutter anticoagulated on Coumadin with RVR hemodynamically stable, acute excerebration of systolic heart failure. Hospital Day 6. 1. Atrial fibrillation with RVR and cycling between flutter and fibrillation, acute, present on admission - Patient has an established history of continually being in atrial fibrillation - INR 2.1 at DC - Continued Coumadin - Continued Metoprolol - Continued oral Amiodarone - Discontinued diltiazem drip per cardiology - Discontinued digoxin Amiodarone drip per cardiology - Troponin trended down -explained the need for closer follow up of INR due to amiodarone interaction, patient verbalizes understanding 2. Acute on chronic systolic heart failure, present on admission, ongoing - Shortness of breath, pleural effusions, in the setting of negative procalcitonin and lactic acid, likely due to acute excerebration of systolic HF - Last ECHO in 2011 fairly normal, repeat ECHO showing EF of 35% - Continued Spirolactone 12.5 mg PO QD - Continued Furosemide 40 mg IV QD - Continued Lipitor, lisinopril and metoprolol. increased lisinopril to 5 mg bid 3. 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 Radiodensities near left shoulder visualized on CXR, not present on admission , rulled out - Localization and etiology unclear at present time - 2-view XR of left shoulder ordered for better localization and visualization negative 5. Hypertension, present on admission, ongoing - Patient has an established history of hypertension - Continued lisinopril 2.5 mg PO QD 6. Acute epistaxis, s/p second cauterization, stable - Cauterized by ENT, prior to admission - Overnight 03/24/16 patient noted right nose bleed that woke her up, ED called to place [facility] to control bleeding - ENT consulted to cauterized bleed - Bleeding controlled by cautery and wound packed with sterile dressing - Continued Amoxicillin 500 PO BID per ENT stop 03/29\\ 7. initially suspected Pneumonia, present on admission, ruled out - Patient has radiological and physical findings that suggest pneumonia - Continued Ipratropium neb Q6 - Discontinued ceftriaxone and azithromycin for treatment - Procalcitonin and lactic acid negative Exam Vital Signs (Last) Date Time Temp Pulse Resp B/P Pulse Ox O2 Delivery O2 Flow Rate FiO2 03/29/16 12:22 66 18 94 Room Air 03/29/16 08:21 36.2 139/72 03/24/16 09:14 1.50 Exam General/Constitutional: Well-developed, well-nourished, alert and oriented x 3 , able to ambulate without assistance Head / Eyes: Atraumatic, Normocephalic, PERRLA ENT: Conjunctiva normal, no scleral icterus, dried blood in nostrils without any active bleeding. No blood noted in oropharynx Neck: Full range of motion, Thyroidectomy scar Respiratory / Chest: Cough, breath sounds equal bilat, scattered expiratory wheezes and rhonchi Cardiovascular: No gallop, No murmurs, No rubs, Peripheral circulation NL Heart Rate / Rhythm: Positive: Irreg irregular rhythm, Tachycardia Abdomen / GI: Soft, Non-tender, No guarding, No rebound, No distention Extremities: Vascular intact, Neuro intact Skin: Warm, Dry, No cyanosis Neurologic: Alert, Oriented, Nonfocal Psychiatric: Mood/affect normal, Behavior normal, Normal thought content Test 03/23/16 15:00 03/23/16 15:52 03/23/16 17:20 03/24/16 02:40 D-Dimer < 0.5mg/L (<0.50) Pro-B-Type Natriuretic Peptide 2182pg/mL (0-738) Hold [place]ley Top Tube Received (Received) Urine Color Yellow (YELLOW) Urine Appearance Hazy (CLEAR,HAZY) Urine pH 5.0 (5.0-8.0) Urine Specific [place] 1.025 (1.003-1.035) Urine Protein Negativemg/dL (NEG,TRACE) Urine Glucose (UA) Negativemg/dL (NEGATIVE) Urine Ketones Negativemg/dL (NEGATIVE) Urine Occult Blood Negative (NEGATIVE) Urine Nitrite Negative (NEGATIVE) Urine Bilirubin Negative (NEGATIVE) Urine Urobilinogen Normalmg/dL (NORMAL) Urine Leukocyte Esterase Negative (NEGATIVE) Urine RBC 0-2/hpf (0-2) Urine WBC 0-5/hpf (0-5) Urine Epithelial Cells Moderate/hpf (NONE-MOD) Urine Crystals None seen (NONE SEEN) Urine Bacteria Few/hpf (NONE-FEW) Urine Hyaline Casts None/lpf (NONE) Urine Granular Casts None seen (NONE SEEN) Urine Waxy Casts None seen (NONE SEEN) Urine Red Blood Cell Casts None seen (NONE SEEN) Urine White Blood Cell Casts None seen (NONE SEEN) Urine Mucus Present (None Seen) Urine Trichomonas None seen (NONE SEEN) Urine Yeast None (NONE SEEN) Urinalysis Comment None Urine Culture Reflexed Not indicated Total Bilirubin 0.8mg/dL (0.0-1.2) Aspartate Amino Transf (AST/SGOT) 26U/L (0-50) Alanine Aminotransferase (ALT/SGPT) 34U/L (0-32) Alkaline Phosphatase 92U/L (25-165) Total Protein 5.7g/dL (6.4-8.4) Albumin 3.2g/dL (3.4-5.0) Test 03/24/16 10:20 03/25/16 03:00 03/25/16 10:19 03/26/16 03:20 Lactic Acid Level 1.4mmol/L (0.4-2.0) Procalcitonin < 0.05ng/mL (See Comment) Digoxin Level 1.1nG/mL (0.9-2.0) Triglycerides Level 85mg/dL (0-149) Cholesterol Level 140mg/dL (100-199) LDL Cholesterol, Calculated 79.000mg/dL (0-99) VLDL Cholesterol 17.000mg/dL HDL Cholesterol 44mg/dL (>39) Cholesterol/HDL Ratio 3.18 (0.0-4.4) Thyroid Stimulating Hormone (TSH) 2.770uIU/mL (0.450-4.500) Troponin T 0.025ug/L (0.0-0.011) Test 03/28/16 02:30 03/29/16 02:25 Neutrophils (%) (Auto) 63.1% (40-74) Lymphocytes (%) (Auto) 21.6% (14-46) Monocytes (%) (Auto) 12.4% (4-12) Eosinophils (%) (Auto) 2.4% (0-5) Basophils (%) (Auto) 0.4% (0-3) Magnesium Level 1.8mg/dL (1.6-2.6) White Blood Count 6.5th/mm3 (3.8-10.1) Red Blood Count 3.96mil/mm3 (3.90-5.20) Hemoglobin 11.9g/dL (12.0-15.6) Hematocrit 37.1% (35.0-46.0) Mean Corpuscular Volume 93.7fL (81-100) Mean Corpuscular Hemoglobin 30.1pg (27.0-35.0) Mean Corpuscular Hemoglobin Concent 32.1% (32.0-37.0) Red Cell Distribution Width 14.4% (12.3-15.4) Platelet Count 210bil/L (150-400) Prothrombin Time 22.8sec (8.1-12.5) Prothromb Time International Ratio 2.10ratio Sodium Level 140mEq/L (134-144) Potassium Level 4.3mEq/L (3.5-5.2) Chloride Level 99mEq/L (97-108) Carbon Dioxide Level 32mmol/L (18-29) Blood Urea Nitrogen 24mg/dL (8-27) Creatinine 0.70mg/dL (0.57-1.00) Estimat Glomerular Filtration Rate 115mL/min (>59) Glucose Level 125mg/dL (60-99) Calcium Level 9.2mg/dL (8.5-10.1) Discharge Medications Discharge Medications Amiodarone (Amiodarone) 200 Mg Tablet 200 MG PO DAILY Prescribed by: GIN REINA DO Amoxicillin (Amoxicillin) 500 Mg Tablet 500 MG PO BID Prescribed by: GIN REINA DO Atorvastatin Calcium (Atorvastatin Calcium) 40 Mg Tablet 40 MG PO HS Prescribed by: GIN REINA DO Diltiazem ER (Cartia XT) 180 Mg Cap.er.24h 180 MG PO DAILY Prescribed by: GIN REINA DO Fluticasone Propionate (Flovent HFA 110 mcg) 12 Gm Aer.w.adap 1 PUFF IH BID ( Reported) Furosemide (Furosemide) 40 Mg Tablet 40 MG PO DAILY Prescribed by: GIN REINA DO Ipratropium [place] (Atrovent HFA) 200 Puff/12.9 Gm Inhaler 2 PUFF INH QID Prescribed by: GIN REINA DO Lisinopril (Lisinopril) 5 Mg Tablet 5 MG PO BID Prescribed by: GIN REINA DO Oxybutynin Chloride (Oxybutynin Chloride) 5 Mg Tablet 5 MG PO BID (Reported) Prednisone (PredniSONE) 20 Mg Tablet 20 MG PO DAILY (Reported) Spironolactone (Aldactone) 25 Mg Tablet 12.5 MG PO DAILY Prescribed by: GIN REINA DO Warfarin Sodium (Warfarin Sodium) 5 Mg Tablet 7.5 MG PO Mon, Mon, Mon Prescribed by: GIN REINA DO Warfarin Sodium (Warfarin Sodium) 5 Mg Tablet 5 MG PO ,,, Prescribed by: GIN REINA DO As needed ([Lophen-C Nr Liquid]) 10 ML PO Q6H PRN PRN . (Reported) Cyclobenzaprine (Cyclobenzaprine) 5 Mg Tablet 5 MG PO HS PRN PRN Spasm (Reported ) Followup Plan Disposition: Home Follow-up plan Follow up with your primary doctor in one week Follow up with ENT today Follow up with Cardiology at your next scheduled appointment Discharge Diet: Heart Healthy Discharge Activity: Limited until seen by PCP Patient Instructions 1. Atrial fibrillation with RVR and cycling between flutter and fibrillation, acute, present on admission, stable - INR 2.1 03/29/16 - Continue Coumadin7.5mg M,W, with 5mg other days by mouth. You will need to have your blood INR tested twice a week, please schedule appointments with the Anticoagulation clinc for later this week and twice a week for the next four weeks. - Continue Amiodarone 200 mg by mouth daily - Cardiology consulted, we appreciate their time and recommendations 2. Acute on chronic systolic heart failure, present on admission, ongoing - Continue Spirolactone 12.5 mg by mouth daily - Continue Furosemide 40 mg by mouth daily - Continue lisinopril to 5 mg by mouth daily - Continue Atorvastatin 40 mg by mouth daily 3. Radiodensities near left shoulder visualized on CXR, not present on admission , ongoing - Left humerus X-ray taken, pending at time of discharge - Follow up with your primary doctor to determine if further imaging is necessary 4. Hypertension, present on admission, ongoing - Continue lisinopril to 5 mg by mouth daily 5. Acute epistaxis, s/p second cauterization, stable - Keep scheduled appointment with ENT today 03/29/16 at 2:30 PM - Continue Amoxicillin 500 PO BID per ENT stop today 7. Pneumonia, likely CAP, acute, present on admission, ruled out - Follow up with your primary Doctor in one week Follow-up Provider: Mario Tobar PA-C Follow-up with PCP in: 1 week Time spent 40 minutes coordinating discharge Attending Statement patient seen and examined with Dr Reina .I agree with the history,exam, impression and plan as outlined above copies to: Prashanth Nevarez MD, AARON J DO Mar 29, 2016 18:30 Felice Solis MD Mar 29, 2016 18:45
== END 2016-03-29 13:19 | disposition home or self-care (01) | DRG 264 ==
LOC: SED 14:24 → PCC 17:21
PROVIDERS: ADMIT Internal Medicine; ATTEND Internal Medicine
PROC: 0W3Q8ZZ Control Bleeding in Respiratory Tract, Via Natural or Artificial Opening Endoscopic (ICD-10-PCS; principal; 2016-03-19)
DX: I48.92 Unspecified atrial flutter (principal); I50.23 Acute on chronic systolic (congestive) heart failure; Z79.01 Long term (current) use of anticoagulants; I10 Essential (primary) hypertension; R04.0 Epistaxis; Z79.52 Long term (current) use of systemic steroids; I42.8 Other cardiomyopathies; I48.91 Unspecified atrial fibrillation